=== PATIENT | male | born 1970 | race Caucasian/White ===

== ENCOUNTER 2018-05-27 21:07 | Emergency (ER) | payer BC ==
--- OUTSIDE RECORDS SUMMARY | 2018-05-27 21:10 | XMS REPORT ---
:1970 Author Organization eClinicalWorks Care Team Providers Name Role Phone Brook Herbert Provider Role Unavailable Allergies, Adverse Reactions, Alerts Substance Reaction Event Type N.K.D.A. Info Not Available Non Drug Allergy Problems Problem Type Condition Code Onset Dates Condition Status Problem Gastro-esophageal reflux disease K21.9 Active without esophagitis Problem Over weight E66.3 Active Problem Hypertriglyceridemia E78.1 Active Assessment Pharyngitis, unspecified etiology J02.9 Active Problem Allergic rhinitis, unspecified J30.9 Active Problem Controlled type 2 diabetes mellitus E11.9 Active without complication, without long-term current use of insulin Medications Medication Code Code Instructions Start End Status Dosage System Date Date PredniSONE [facility] 16206028460 20 MG Orally BID Active 1 tablet Metformin HCl [facility] 16411166429 1000 MG Orally Active 1 tablet Once a day with a meal Flonase [facility] 89374232713 50 MCG/ACT Active 1 spray in Nasally Once a each day nostril Montelukast [facility] 38476329830 10 MG Orally Active 1 tablet Sodium Once a day in the evening Tradjenta [facility] 50405684042 5 MG Orally Once Active 1 tablet a day Omeprazole [facility] 81035884784 40 MG Orally Active 1 capsule Once a day Results Name Result Date Reference Range Unit Abnormality Flag STREP A RAPID ----Result Negative [id number] Summary Purpose eClinicalWorks Submission
--- OUTSIDE RECORDS SUMMARY | 2018-05-27 21:10 | XMS REPORT ---
:1970 Author Organization eClinicalWorks Care Team Providers Name Role Phone Pope, Na Provider Role Unavailable Allergies, Adverse Reactions, Alerts Substance Reaction Event Type N.K.D.A. Info Not Available Non Drug Allergy Problems Problem Type Condition Code Onset Dates Condition Status Assessment Hypertriglyceridemia E78.1 Active Assessment Controlled type 2 diabetes mellitus E11.9 Active without complication, without long-term current use of insulin Assessment Low serum vitamin B12 R79.89 Active Assessment Allergic rhinitis, unspecified J30.9 Active Assessment Gastro-esophageal reflux disease K21.9 Active without esophagitis Problem Sore throat J02.9 Active Problem Gastro-esophageal reflux disease K21.9 Active without esophagitis Problem Low serum vitamin B12 R79.89 Active Problem Hypertriglyceridemia E78.1 Active Problem Controlled type 2 diabetes mellitus E11.9 Active without complication, without long-term current use of insulin Problem Over weight E66.3 Active Problem Allergic rhinitis, unspecified J30.9 Active Medications Medication Code Code Instructions Start End Status Dosage System Date Cetirizine HCl [facility] 09774860790 10 MG Orally Active 1 tablet Once a day Singulair [facility] 77570231222 10 MG Active TAKE ONE BY MOUTH DAILY Omeprazole [facility] 75475546961 40 MG Orally Active 1 capsule Once a day Metformin HCl [facility] 66161653304 1000 MG Orally Active 1 tablet Once a day with a meal Metformin HCl [facility] 95870951418 1000 MG Active TAKE ONE BY MOUTH TWICE DAILY Montelukast ND 24039500821 10 MG Orally Active 1 tablet in Sodium Once a day the evening Kroger Test [facility] 88602230274 - In Vitro May 25, Active as directed twice a day 2017 Omeprazole [facility] 33466294065 40 MG Active TAKE ONE BY MOUTH DAILY Tradjenta [facility] 27280944900 5 MG Orally Active 1 tablet Once a day PredniSONE ND 69428348995 20 MG Orally Active 1 tablet BID Flonase [facility] 02306422079 50 MCG/ACT Active 1 spray in Nasally Once a each day nostril Results No Known Results Summary Purpose eClinicalWorks Submission
--- OUTSIDE RECORDS SUMMARY | 2018-05-27 21:10 | XMS REPORT ---
:1970 Author Organization eClinicalWorks Care Team Providers Name Role Phone Pope, Na Provider Role Unavailable Allergies, Adverse Reactions, Alerts Substance Reaction Event Type N.K.D.A. Info Not Available Non Drug Allergy Problems Problem Type Condition Code Onset Dates Condition Status Assessment Allergic rhinitis, unspecified J30.9 Active Assessment Sore throat J02.9 Active Problem Gastro-esophageal reflux disease K21.9 Active without esophagitis Problem Over weight E66.3 Active Problem Sore throat J02.9 Active Problem Controlled type 2 diabetes mellitus E11.9 Active without complication, without long-term current use of insulin Problem Allergic rhinitis, unspecified J30.9 Active Problem Hypertriglyceridemia E78.1 Active Medications Medication Code Code Instructions Start End Status Dosage System Date Date Cetirizine HCl [facility] 91259942320 10 MG Orally Active 1 tablet Once a day PredniSONE ND 11514932911 20 MG Orally BID Active 1 tablet Metformin HCl ND 99187916315 1000 MG Orally Active 1 tablet Once a day with a meal Montelukast ND 50736231918 10 MG Orally Active 1 tablet Sodium Once a day in the evening Flonase ND 32339387994 50 MCG/ACT Active 1 spray in Nasally Once a each day nostril Omeprazole ND 21618206544 40 MG Orally Active 1 capsule Once a day Tradjenta ND 18765716944 5 MG Orally Once Active 1 tablet a day Results No Known Results Summary Purpose eClinicalWorks Submission
--- OUTSIDE RECORDS SUMMARY | 2018-05-27 21:10 | XMS REPORT ---
:1970 Author Organization eClinicalWorks Care Team Providers Name Role Phone Pope, Na Provider Role Unavailable Allergies No Known Allergies Problems Problem Type Condition Code Onset Dates Condition Status Assessment Allergic rhinitis, unspecified J30.9 Active Assessment Hypertriglyceridemia E78.1 Active Assessment Gastro-esophageal reflux disease K21.9 Active without esophagitis Problem Gastro-esophageal reflux disease K21.9 Active without esophagitis Problem Over weight E66.3 Active Problem Sore throat J02.9 Active Problem Controlled type 2 diabetes mellitus E11.9 Active without complication, without long-term current use of insulin Assessment Controlled type 2 diabetes mellitus E11.9 Active without complication, without long-term current use of insulin Problem Allergic rhinitis, unspecified J30.9 Active Problem Hypertriglyceridemia E78.1 Active Medications Medication Code Code Instructions Start End Status Dosage System Date Date Flonase [facility] 43451589817 50 MCG/ACT Active 1 spray in Nasally Once a each day nostril Omeprazole [facility] 38923317378 40 MG Orally Active 1 capsule Once a day Metformin HCl [facility] 68136634861 1000 MG Orally Active 1 tablet Once a day with a meal Tradjenta [facility] 08545864167 5 MG Orally Once Active 1 tablet a day Montelukast [facility] 62308080545 10 MG Orally Active 1 tablet Sodium Once a day in the evening Results No Known Results Summary Purpose eClinicalWorks Submission
[2018-05-27] MEDS ORDERED: NA CHLORIDE 0.9% 1,000 ML ONE (22:12)
[2018-05-27] MEDS ORDERED: KETOROLAC 30 MG/ML INJ ONE (22:12)
[2018-05-27 22:45] LABS: Urine Blood TRACE (NEG); Urine Glucose 2+ (NEG); Urine Protein NEGATIVE (NEG); Urine Specific Gravity 1.025 (1.005-1.030)
[2018-05-27 22:52] LABS: Absolute Lymphocytes (CBC) 2.4 K/uL (0.7-4.9); Absolute Monocytes 0.9 K/uL (0.1-1.3); Absolute Neutrophil 7.7 K/uL (1.8-8.0); Basophils % 0.8 % (0-1.3); Eosinophils % 2.3 % (0-4.4); Hematocrit 45.9 % (39.6-49.0); Lymphocytes % 21.2 % (15.3-44.8); MCH 28.3 pg (27.0-35.0); MCV 83.2 fL (80-100); MPV 10.3 fL (7.6-11.3); Monocytes % 7.7 % (3.3-12.3); RBC Red Blood Cell Count 5.51 M/uL (4.33-5.43)
[2018-05-27 22:59] LABS: Albumin 3.6 g/dL (3.4-5.0); Bilirubin Direct 0.1 mg/dL (0-0.2); Bilirubin Total 0.4 mg/dL (0.2-1.0); Potassium 4.5 mmol/L (3.5-5.1); Protein, Total 7.3 g/dL (6.4-8.2)
[2018-05-28 00:01] LABS: Urine Bacteria <20 /HPF (NONE SEEN); Urine Culture Reflex Order NOT NEEDED; Urine RBC <5 /HPF (NONE SEEN)
--- NOTE | 2018-05-28 00:06 | ER ---
Nurse's Notes [facility] Name: Fermin Mc Age: 47 yrs Sex: Male : 1970 Arrival Date: 05/27/2018 Time: 21:08 Bed 30 Private MD: Buffy Pope Diagnosis: Calculus of kidney and ureter Presentation: 05/27 21:20 Presenting complaint: Patient states: left flank pain started today. Transition of ak1 care: patient was not received from another setting of care. Onset of symptoms was May 27, 2018. Risk Assessment: Do you want to hurt yourself or someone else? Patient reports no desire to harm self or others. Care prior to arrival: None. 21:20 Method Of Arrival: Ambulatory ak1 21:20 Acuity: VANNESSA 3 ak1 22:00 Initial Sepsis Screen: Does the patient meet any 2 criteria? No. Patient's initial mg2 sepsis screen is negative. Does the patient have a suspected source of infection? No. Patient's initial sepsis screen is negative. Triage Assessment: 21:22 General: Appears in no apparent distress. Behavior is calm, cooperative. ak1 Historical: - Allergies: 21:22 No Known Allergies; ak1 - Home Meds: 21:22 Omeprazole Oral [Active]; Metformin Oral [Active]; trajenta [Active]; Singulair Oral ak1 [Active]; - PMHx: 21:22 Diabetes - NIDDM; GERD; allergies; ak1 - PSHx: 21:22 Hernia repair; ak1 - Immunization history:: Adult Immunizations unknown. - Social history:: Smoking status: Patient/guardian denies using tobacco. - Ebola Screening: : No symptoms or risks identified at this time. Screenin:22 Abuse screen: Denies threats or abuse. Denies injuries from another. Nutritional ak1 screening: No deficits noted. Tuberculosis screening: No symptoms or risk factors identified. Fall Risk None identified. Assessment: 21:58 General: Appears in no apparent distress. uncomfortable, Behavior is calm, cooperative. mg2 Pain: Complains of pain in left flank Pain does not radiate. Pain currently is 4 out of 10 on a pain scale. Quality of pain is described as aching, Pain began gradually, Is intermittent, Alleviated by medications. Neuro: Level of Consciousness is awake, alert, obeys commands, Oriented to person, place, time, situation. Cardiovascular: Capillary refill < 3 seconds Patient's skin is warm and dry. Respiratory: Airway is patent Respiratory effort is even, unlabored, Respiratory pattern is regular, symmetrical. GI: Reports nausea. : Reports pain in left flank(s). EENT: No signs and/or symptoms were reported regarding the EENT system. Derm: Skin is intact, Skin is pink, warm \T\ dry. normal. Musculoskeletal: Circulation, motion, and sensation intact. 23:24 Reassessment: Patient appears in no apparent distress at this time. Patient and/or mg2 family updated on plan of care and expected duration. Pain level reassessed. Patient is alert, oriented x 3, equal unlabored respirations, skin warm/dry/pink. Vital Signs: 21:20 BP 136 / 95; Pulse 94; Resp 18; Temp 98.0(O); Pulse Ox 98% on R/A; Weight 83.91 kg (R); ak1 Height 5 ft. 7 in. (170.18 cm) (R); Pain 4/10; 22:24 BP 146 / 68; Pulse 78; Resp 18; Pulse Ox 98% on R/A; Pain 4/10; mg2 23:24 BP 117 / 81; Pulse 75; Resp 18; Pulse Ox 100% on R/A; Pain 2/10; mg2 21:20 Body Mass Index 28.97 (83.91 kg, 170.18 cm) ak1 ED Course: 21:08 Patient arrived in ED. ds1 21:08 Buffy Pope MD is Private Physician. ds1 21:20 Triage completed. ak1 21:22 Arm band placed on Patient placed in waiting room, Patient notified of wait time. ak1 21:22 Patient has correct armband on for positive identification. ak1 21:38 Hadley Jack, MANDI is Primary Nurse. mg2 21:59 Jacek Castano NP is PHCP. pm1 21:59 Juan Miguel Fortune MD is Attending Physician. pm1 21:59 No provider procedures requiring assistance completed. Inserted saline lock: 20 gauge mg2 in right antecubital area, using aseptic technique. Blood collected. 22:37 CT Stone Protocol In Process Unspecified. EDMS 05/28 00:05 Tika Franco MD is Referral Physician. pm1 00:39 IV discontinued, intact, bleeding controlled, No redness/swelling at site. Pressure mg2 dressing applied. Administered Medications: 05/27 22:12 Drug: NS 0.9% 1000 ml Route: IV; Rate: 1000 ml; Site: right antecubital; mg2 05/28 00:37 Follow up: Response: No adverse reaction; IV Status: Completed infusion mg2 05/27 22:12 Drug: TORadol 30 mg Route: IVP; Site: right antecubital; mg2 23:00 Follow up: Response: No adverse reaction; Marked relief of symptoms mg2 05/28 00:29 Drug: Cipro 500 mg Route: PO; mg2 00:37 Follow up: Response: No adverse reaction; Marked relief of symptoms mg2 00:29 Drug: morphine 4 mg Route: IVP; Site: right antecubital; mg2 00:38 Follow up: Response: No adverse reaction; Medication administered at discharge. mg2 00:29 Drug: Zofran 4 mg Route: IVP; Site: right antecubital; mg2 00:38 Follow up: Response: No adverse reaction; Medication administered at discharge. mg2 00:29 Drug: Flomax 0.4 mg Route: PO; mg2 00:36 Follow up: Response: No adverse reaction; Medication administered at discharge. mg2 Outcome: 00:05 Discharge ordered by MD. pm1 00:39 Discharged to home ambulatory, with family. mg2 00:39 Condition: good 00:39 Discharge instructions given to patient, family, Instructed on discharge instructions, follow up and referral plans. medication usage, Demonstrated understanding of instructions, follow-up care, medications, Prescriptions given X 4. 00:40 Patient left the ED. mg2 Signatures: Dispatcher [facility] [facility] Yasmine Perez ds1 Milly Powell, RN RN ak1 Jacek Castano, [employer] pm1 Hadley Jack, MANDI RN mg2
--- NOTE | 2018-05-28 00:06 | EDPHYS ---
Physician Documentation [facility] Name: Fermin Mc Age: 47 yrs Sex: Male : 1970 Arrival Date: 05/27/2018 Time: 21:08 Bed 30 Private MD: Buffy Pope ED Physician Juan Miguel Fortune HPI: 05/28 00:00 This 47 yrs old Male presents to ER via Ambulatory with complaints of Flank pm1 Pain. 00:00 The patient complains of pain in the left low back. The pain does not radiate. Onset: pm1 The symptoms/episode began/occurred today. Modifying factors: The symptoms are alleviated by nothing. the symptoms are aggravated by nothing. Associated signs and symptoms: Pertinent positives: nausea, Pertinent negatives: dysuria, fever, hematuria, vomiting. Severity of pain: in the emergency department the pain has improved. The patient has experienced similar episodes in the past, a few times, and the symptoms today are exactly the same, to previous kidney stones. The patient has not recently seen a physician. Historical: - Allergies: 05/27 21:22 No Known Allergies; ak1 - Home Meds: 21:22 Omeprazole Oral [Active]; Metformin Oral [Active]; trajenta [Active]; Singulair Oral ak1 [Active]; - PMHx: 21:22 Diabetes - NIDDM; GERD; allergies; ak1 - PSHx: 21:22 Hernia repair; ak1 - Immunization history:: Adult Immunizations unknown. - Social history:: Smoking status: Patient/guardian denies using tobacco. - Ebola Screening: : No symptoms or risks identified at this time. ROS: 05/28 00:00 Constitutional: Negative for fever, chills, and weight loss, Eyes: Negative for injury, pm1 pain, redness, and discharge, ENT: Negative for injury, pain, and discharge, Neck: Negative for injury, pain, and swelling, Cardiovascular: Negative for chest pain, palpitations, and edema, Respiratory: Negative for shortness of breath, cough, wheezing, and pleuritic chest pain, Abdomen/GI: Negative for abdominal pain, nausea, vomiting, diarrhea, and constipation. : Negative for injury, bleeding, discharge, and swelling, MS/Extremity: Negative for injury and deformity, Skin: Negative for injury, rash, and discoloration, Neuro: Negative for headache, weakness, numbness, tingling, and seizure. Back: Positive for flank pain, on the left. Exam: 00:00 Constitutional: This is a well developed, well nourished patient who is awake, alert, pm1 and in no acute distress. Head/Face: Normocephalic, atraumatic. Eyes: Pupils equal round and reactive to light, extra-ocular motions intact. Lids and lashes normal. Conjunctiva and sclera are non-icteric and not injected. Cornea within normal limits. Periorbital areas with no swelling, redness, or edema. ENT: Nares patent. No nasal discharge, no septal abnormalities noted. Tympanic membranes are normal and external auditory canals are clear. Oropharynx with no redness, swelling, or masses, exudates, or evidence of obstruction, uvula midline. Mucous membranes moist. Neck: Trachea midline, no thyromegaly or masses palpated, and no cervical lymphadenopathy. Supple, full range of motion without nuchal rigidity, or vertebral point tenderness. No Meningismus. Chest/axilla: Normal chest wall appearance and motion. Nontender with no deformity. No lesions are appreciated. Cardiovascular: Regular rate and rhythm with a normal S1 and S2. No gallops, murmurs, or rubs. Normal PMI, no JVD. No pulse deficits. Respiratory: Lungs have equal breath sounds bilaterally, clear to auscultation and percussion. No rales, rhonchi or wheezes noted. No increased work of breathing, no retractions or nasal flaring. Abdomen/GI: Soft, non-tender, with normal bowel sounds. No distension or tympany. No guarding or rebound. No evidence of tenderness throughout. 00:00 Skin: Warm, dry with normal turgor. Normal color with no rashes, no lesions, and no evidence of cellulitis. MS/ Extremity: Pulses equal, no cyanosis. Neurovascular intact. Full, normal range of motion. 00:00 Back: CVA tenderness, that is mild, is noted on the left. 00:00 Neuro: Orientation: is normal, Motor: is normal. Vital Signs: 05/27 21:20 BP 136 / 95; Pulse 94; Resp 18; Temp 98.0(O); Pulse Ox 98% on R/A; Weight 83.91 kg (R); ak1 Height 5 ft. 7 in. (170.18 cm) (R); Pain 4/10; 22:24 BP 146 / 68; Pulse 78; Resp 18; Pulse Ox 98% on R/A; Pain 4/10; mg2 23:24 BP 117 / 81; Pulse 75; Resp 18; Pulse Ox 100% on R/A; Pain 2/10; mg2 21:20 Body Mass Index 28.97 (83.91 kg, 170.18 cm) ak1 MDM: 22:04 Patient medically screened. pm1 05/28 00:03 Data reviewed: vital signs. Data interpreted: Pulse oximetry: on room air is 100 %. pm1 Interpretation: normal. Counseling: I had a detailed discussion with the patient and/or guardian regarding: the historical points, exam findings, and any diagnostic results supporting the discharge/admit diagnosis, lab results, radiology results, the need for outpatient follow up, for definitive care, a urologist, to return to the emergency department if symptoms worsen or persist or if there are any questions or concerns that arise at home. 05/27 22:04 Order name: Urine Microscopic Only; Complete Time: 00:02 pm1 05/27 22:04 Order name: Basic Metabolic Panel; Complete Time: 23:31 pm1 05/27 22:04 Order name: CBC with Diff; Complete Time: 23:31 pm1 05/27 22:04 Order name: Hepatic Function; Complete Time: 23:31 pm1 05/27 22:04 Order name: Lipase; Complete Time: 23:31 pm1 05/27 22:19 Order name: Urine Dipstick--Ancillary (enter results); Complete Time: 23:31 dc 05/27 22:04 Order name: IV Saline Lock; Complete Time: 22:12 pm1 05/27 22:04 Order name: CT Stone Protocol pm1 05/27 22:04 Order name: Labs collected and sent; Complete Time: 22:12 pm1 05/27 22:04 Order name: Urine Dipstick-Ancillary (obtain specimen); Complete Time: 22:12 pm1 Administered Medications: 05/27 22:12 Drug: NS 0.9% 1000 ml Route: IV; Rate: 1000 ml; Site: right antecubital; mg2 05/28 00:37 Follow up: Response: No adverse reaction; IV Status: Completed infusion mg2 05/27 22:12 Drug: TORadol 30 mg Route: IVP; Site: right antecubital; mg2 23:00 Follow up: Response: No adverse reaction; Marked relief of symptoms mg2 05/28 00:29 Drug: Cipro 500 mg Route: PO; mg2 00:37 Follow up: Response: No adverse reaction; Marked relief of symptoms mg2 00:29 Drug: morphine 4 mg Route: IVP; Site: right antecubital; mg2 00:38 Follow up: Response: No adverse reaction; Medication administered at discharge. mg2 00:29 Drug: Zofran 4 mg Route: IVP; Site: right antecubital; mg2 00:38 Follow up: Response: No adverse reaction; Medication administered at discharge. mg2 00:29 Drug: Flomax 0.4 mg Route: PO; mg2 00:36 Follow up: Response: No adverse reaction; Medication administered at discharge. mg2 Disposition: 03:10 Co-signature as Attending Physician, Juan Miguel Fortune MD. Disposition: 05/28/18 00:05 Discharged to Home. Impression: Calculus of kidney and ureter. - Condition is Stable. - Discharge Instructions: Kidney Stones. - Prescriptions for Tylenol- Codeine #3 300-30 mg Oral Tablet - take 2 tablet by ORAL route every 6 hours As needed; 30 tablet. Zofran 4 mg Oral Tablet - take 1 tablet by ORAL route every 12 hours As needed; 20 tablet. Flomax 0.4 mg Oral Capsule, Sust. Release 24 hr - take 1 capsule by ORAL route once daily 1/2 hour following the same meal each day; 30 capsule. Cipro 500 mg Oral Tablet - take 1 tablet by ORAL route every 12 hours for 7 days; 14 tablet. - Medication Reconciliation Form, Thank You Letter, Antibiotic Education, Prescription Opioid Use, Work release form form. - Follow up: Emergency Department; When: As needed; Reason: Worsening of condition. Follow up: Tika Franco MD; When: 2 - 3 days; Reason: Recheck today's complaints, Continuance of care, Re-evaluation by your physician. - Problem is new. - Symptoms have improved. Signatures: Dispatcher [employer] EDMS Milly Powell RN RN ak1 Jacek Castano, SALES AGENT INSURANCE SALES AGENT INSURANCE pm1 Juan Miguel Fortune MD MD Hadley Jack RN RN mg2 Corrections: (The following items were deleted from the chart) 00:40 00:05 05/28/2018 00:05 Discharged to Home. Impression: Calculus of kidney and ureter. mg2 Condition is Stable. Forms are Medication Reconciliation Form, Thank You Letter, Antibiotic Education, Prescription Opioid Use. Follow up: Emergency Department; When: As needed; Reason: Worsening of condition. Follow up: Tika Franco; When: 2 - 3 days; Reason: Recheck today's complaints, Continuance of care, Re-evaluation by your physician. Problem is new. Symptoms have improved. pm1
[2018-05-28] MEDS ORDERED: CIPROFLOXACIN HCL 500 MG TAB ONE (00:17)
[2018-05-28] MEDS ORDERED: MORPHINE 4 MG/ML SYR ONE (00:22)
[2018-05-28] MEDS ORDERED: TAMSULOSIN 0.4 MG SR CAP ONE (00:22)
[2018-05-28] MEDS ORDERED: ONDANSETRON 4 MG/2 ML VIAL ONE (00:22)
--- NOTE | 2018-05-28 07:52 | RAD REPORT ---
EXAM DESCRIPTION: CT - Stone Protocol - 05/28/2018 6:01 am CLINICAL HISTORY: Abdominal pain, flank pain A preliminary report was provided at the time of the study and reviewed prior to final report. COMPARISON: None. TECHNIQUE: Axial 5 mm thick images were obtained without oral or IV contrast. The [id number] span s the entirety of the system including uppermost abdomen and lung bases. All CT scans are performed using dose optimization technique as appropriate and may include automated exposure control or mA/KV adjustment according to patient size. FINDINGS: Mild left-sided hydronephrosis is present secondary to a proximal left ureter 5 mm stone. On a KUB projection the stone would be just lateral and inferior to the L4 left transverse process. P atient has multiple 3-7 mm caliceal calculi on the right. Patient does appear to have some faint mine ralization in a few calices on the left. No suspicious renal masses. Isodense masses and pyelonephrit is are not excluded on a stone protocol CT scan. Urinary bladder is contracted. No bladder calculi se en. Prostate gland and seminal vesicles within normal limits. No adrenal abnormality. Imaged portions of the liver, spleen and pancreas show no suspicious findings on non-contrast imaging . No gallbladder or biliary tree abnormality identified. No suspicious bowel findings. Sigmoid diverticulosis is present without diverticulitis. There is flui d in the distal esophagus presumed to be reflux. This could be a minimal hiatal hernia. No appendicit is. No hernia, mass or bulky lymphadenopathy noted. No free air, free fluid or inflammatory stranding. No significant bony abnormality. IMPRESSION: Mild left-sided hydronephrosis secondary to a 5 mm proximal left ureter stone. On KUB projection, the stone is just lateral and inferior to the L4 left transverse process. Nonacute findings detailed in the body of the report. Isodense masses and pyelonephritis are not excluded on stone protocol technique.
== END 2018-05-28 00:40 | disposition home or self-care (01) ==
LOC: ER 21:07
DX: N20.2 Calculus of kidney with calculus of ureter (principal)
CPT/HCPCS: 36415; 74176; 76377; 80048; 80076; 81003; 81015; 83690; 85025; 96361; 96374; 96375; 99284; J2405; J7030

== ENCOUNTER 2018-06-02 23:54 | Observation (INO) | payer BC ==
[2018-06-03] MEDS ORDERED: ONDANSETRON 4 MG/2 ML VIAL ONE (00:39)
[2018-06-03] MEDS ORDERED: NA CHLORIDE 0.9% 1,000 ML ONE (00:39)
[2018-06-03] MEDS ORDERED: MEPERIDINE HCL 50 MG/ML AMP ONE ×2 (00:39→03:33)
[2018-06-03 00:49] LABS: Absolute Lymphocytes (CBC) 2.1 K/uL (0.7-4.9); Absolute Monocytes 1.1 K/uL (0.1-1.3); Absolute Neutrophil 7.9 K/uL (1.8-8.0); Basophils % 0.7 % (0-1.3); Eosinophils % 1.9 % (0-4.4); Hematocrit 43.8 % (39.6-49.0); Lymphocytes % 18.3 % (15.3-44.8); MCH 28.3 pg (27.0-35.0); MCV 82.7 fL (80-100); Monocytes % 9.3 % (3.3-12.3); RBC Red Blood Cell Count 5.29 M/uL (4.33-5.43)
[2018-06-03 01:01] LABS: Potassium 4.2 mmol/L (3.5-5.1)
[2018-06-03 01:07] LABS: Urine Blood 2+ (NEG); Urine Glucose NEGATIVE (NEG); Urine Protein NEGATIVE (NEG); Urine Specific Gravity >1.030 (1.005-1.030); Urine pH 5.5 (5.0-7.0)
[2018-06-03 01:10] LABS: Urine Bacteria <20 /HPF (NONE SEEN); Urine Culture Reflex Order NOT NEEDED; Urine Mucus LIGHT /HPF (NONE SEEN); Urine RBC <5 /HPF (NONE SEEN)
[2018-06-03] MEDS ORDERED: TAMSULOSIN 0.4 MG SR CAP ONE (03:58)
[2018-06-03] MEDS ORDERED: KETOROLAC 30 MG/ML INJ ONE (03:58)
[2018-06-03] MEDS ORDERED: MAGNESIUM SULFATE 1 gm IVPB 1 GM/100 ML BAG IV ONE (03:58)
--- NOTE | 2018-06-03 04:12 | ER ---
Nurse's Notes [facility] Name: Fermin Mc Age: 47 yrs Sex: Male : 1970 Arrival Date: 06/02/2018 Time: 23:55 Bed 5 Private MD: Buffy Pope Diagnosis: Ureterolithiasis;Intractable pain;Failure of outpatient therapy Presentation: 06/03 00:05 Presenting complaint: Patient states: that he just had lithotripsy on by Dr Franco. fc Is having pain to left side that radiates to his back. Positive nausea. Taking Cipro and Flomax currently. Transition of care: patient was not received from another setting of care. Onset of symptoms was June 02, 2018. Risk Assessment: Do you want to hurt yourself or someone else? Patient reports no desire to harm self or others. Initial Sepsis Screen: Does the patient meet any 2 criteria? No. Patient's initial sepsis screen is negative. Does the patient have a suspected source of infection? No. Patient's initial sepsis screen is negative. Care prior to arrival: Medication(s) given: tramadol at 2300. 00:05 Method Of Arrival: Wheelchair fc 00:05 Acuity: VANNESSA 3 fc Historical: - Allergies: 00:16 No Known Allergies; fc - Home Meds: 00:16 omeprazole 40 mg oral cpDR 1 cap once daily [Active]; Singulair 10 mg oral tab 1 tab fc once daily [Active]; metformin 1,000 mg oral tab 1 tab 2 times per day [Active]; trajenta daily [Active]; multivitamin oral tab daily [Active]; Flomax 0.4 mg Oral cp24 1 cap once daily [Active]; - PMHx: 00:16 allergies; Diabetes - NIDDM; GERD; Kidney stones; fc - PSHx: 00:16 Lithotripsy; Hernia repair; fc - Immunization history:: Last tetanus immunization: up to date. - Social history:: Smoking status: Patient/guardian denies using tobacco. - Ebola Screening: : Patient negative for fever greater than or equal to 101.5 degrees Fahrenheit, and additional compatible Ebola Virus Disease symptoms Patient denies exposure to infectious person Patient denies travel to an Ebola-affected area in the 21 days before illness onset. - Family history:: not pertinent. - Hospitalizations: : No recent hospitalization is reported. Screenin:13 Fall Risk Ambulatory Aid- None/Bed Rest/Nurse Assist (0 pts). Gait- Normal/Bed jd3 Rest/Wheelchair (0 pts) Mental Status- Oriented to own ability (0 pts). Total Wallace Fall Scale indicates No Risk (0-24 pts). 00:14 Abuse screen: Denies threats or abuse. Nutritional screening: No deficits noted. jd3 Tuberculosis screening: No symptoms or risk factors identified. Assessment: 00:11 General: Appears uncomfortable, Behavior is cooperative, appropriate for age. Pain: jd3 Complains of pain in posterior aspect of left lateral abdomen Pain radiates to anterior aspect of left lateral abdomen Quality of pain is described as sharp. Neuro: Level of Consciousness is awake, alert, obeys commands, Oriented to person, place, time, situation. Cardiovascular: Capillary refill < 3 seconds Patient's skin is warm and dry. Respiratory: Airway is patent Respiratory effort is even, unlabored, Respiratory pattern is regular, symmetrical, Denies shortness of breath. GI: Abdomen is round non-distended, Bowel sounds present X 4 quads. Abd is soft Abdomen is tender to palpation in anterior aspect of left lateral abdomen. : No signs and/or symptoms were reported regarding the genitourinary system. EENT: No signs and/or symptoms were reported regarding the EENT system. Derm: Skin is intact, Skin is dry, Skin is normal, Skin temperature is warm. Musculoskeletal: Circulation, motion, and sensation intact. Range of motion: intact in all extremities. 01:00 Reassessment: Patient appears in no apparent distress at this time. Patient and/or jd3 family updated on plan of care and expected duration. Pain level reassessed. Patient is alert, oriented x 3, equal unlabored respirations, skin warm/dry/pink. Patient states feeling better. 02:03 Reassessment: Patient appears in no apparent distress at this time. Patient and/or jd3 family updated on plan of care and expected duration. Pain level reassessed. Patient is alert, oriented x 3, equal unlabored respirations, skin warm/dry/pink. 03:25 Reassessment: Patient returned from CT, states pain returned to lower back, provider lp1 notified. 04:00 Reassessment: Patient appears in no apparent distress at this time. Patient and/or jd3 family updated on plan of care and expected duration. Pain level reassessed. Patient is alert, oriented x 3, equal unlabored respirations, skin warm/dry/pink. Patient states feeling better. 04:26 Reassessment: Patient appears in no apparent distress at this time. Patient and/or jd3 family updated on plan of care and expected duration. Pain level reassessed. Patient is alert, oriented x 3, equal unlabored respirations, skin warm/dry/pink. 05:53 Reassessment: Patient appears in no apparent distress at this time. Patient and/or jd3 family updated on plan of care and expected duration. Pain level reassessed. Patient is alert, oriented x 3, equal unlabored respirations, skin warm/dry/pink. Vital Signs: 00:05 BP 147 / 88; Pulse 54; Resp 18; Temp 98.6(O); Pulse Ox 100% on R/A; Weight 83.91 kg fc (R); Height 5 ft. 7 in. (170.18 cm) (R); Pain 10/10; 01:00 BP 142 / 93; Pulse 66; Resp 18 S; Pulse Ox 95% on R/A; Pain 0/10; jd3 02:03 BP 102 / 66; Pulse 70; Resp 16 S; Pulse Ox 95% on R/A; Pain 0/10; jd3 03:30 BP 125 / 82; Pulse 62; Resp 14; Pulse Ox 98% on 2 lpm NC; lp1 04:01 BP 125 / 82; Pulse 79; Resp 17 S; Pulse Ox 98% on 2 lpm NC; jd3 04:27 BP 125 / 84; Pulse 65; Resp 15 S; Pulse Ox 97% on 2 lpm NC; jd3 05:52 BP 122 / 70; Pulse 60; Resp 15 S; Pulse Ox 98% on 2 lpm NC; jd3 00:05 Body Mass Index 28.97 (83.91 kg, 170.18 cm) ED Course: 06/02 23:55 Patient arrived in ED. es 23:55 Buffy Pope MD is Private Physician. es 06/03 00:05 Roman Landeros, MANDI is Primary Nurse. jd3 00:12 Sherman Perez MD is Attending Physician. rn 00:13 Warm blanket given. jd3 00:13 Patient has correct armband on for positive identification. Bed in low position. Call jd3 light in reach. Side rails up X2. Adult w/ patient. 00:14 Triage completed. fc 00:14 Arm band placed on. jd3 00:30 Inserted saline lock: 20 gauge in right forearm, using aseptic technique. Blood jd3 collected. 03:03 CT Stone Protocol In Process Unspecified. EDMS 04:10 Ann-Marie Bowers MD is Hospitalizing Provider. rn 06:02 No provider procedures requiring assistance completed. Patient admitted, IV remains in jd3 place. Administered Medications: 00:38 Drug: NS 0.9% 1000 ml Route: IV; Rate: 1000 ml; Site: right forearm; jd3 02:33 Follow up: Response: No adverse reaction; IV Status: Completed infusion; IV Intake: jd3 1000ml 00:39 Drug: Demerol 50 mg Route: IVP; Site: right forearm; jd3 02:33 Follow up: Response: No adverse reaction; Pain is decreased jd3 00:39 Drug: Zofran 4 mg Route: IVP; Site: right forearm; jd3 02:33 Follow up: Response: No adverse reaction jd3 03:32 Drug: Demerol 50 mg Route: IVP; Site: right forearm; lp1 04:19 Follow up: Response: No adverse reaction jd3 03:59 Drug: TORadol 30 mg Route: IVP; Site: right forearm; jd3 04:19 Follow up: Response: No adverse reaction jd3 04:00 Drug: Flomax 0.4 mg Route: PO; jd3 04:20 Follow up: Response: No adverse reaction jd3 04:00 Drug: Magnesium Sulfate 1 grams Route: IVPB; Infused Over: 1 hrs; Site: right forearm; jd3 05:23 Follow up: Response: No adverse reaction; IV Status: Completed infusion jd3 Intake: 02:33 IV: 1000ml; Total: 1000ml. jd3 Outcome: 04:11 Decision to Hospitalize by Provider. rn 06:03 Admitted to Med/surg accompanied by tech, via wheelchair, room 419, with chart, Report jd3 called to Rimma RAYMOND 06:03 Condition: stable 06:03 Instructed on the need for admit, Demonstrated understanding of instructions. 06:30 Patient left the ED. jd3 Signatures: Dispatcher [employer] Anju Hernandez Felicia RN RN fc Sherman Perez MD MD rn Felisa Austin RN RN lp1 Roman Landeros RN RN jd3 Corrections: (The following items were deleted from the chart) 06:42 06:40 Patient left the ED. kevin jd3
--- NOTE | 2018-06-03 04:13 | EDPHYS ---
Physician Documentation [facility] Name: Fermin Mc Age: 47 yrs Sex: Male : 1970 Arrival Date: 06/02/2018 Time: 23:55 Bed 5 Private MD: Buffy Pope ED Physician Sherman Perez HPI: 06/03 00:24 This 47 yrs old Male presents to ER via Wheelchair with complaints of rn Possible Kidney Stone. 00:24 The patient presents with abdominal pain. Onset: The symptoms/episode began/occurred rn today. The patient complains of pain in the left mid back. The pain radiates to the abdomen. Onset: The symptoms/episode began/occurred today. Modifying factors: The symptoms are alleviated by nothing. the symptoms are aggravated by nothing. Modifying factors: The symptoms are alleviated by nothing. 00:24 Severity of pain: At its worst the pain was moderate in the emergency department the rn pain is unchanged. The patient has experienced similar episodes in the past, several times. The patient has been recently seen by a physician: The patient has been recently seen at the [facility] Emergency Department. REports seen here last week, diagnosed with kidney stone, had lithotripsy by Dr. 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 . Historical: - Allergies: 00:16 No Known Allergies; fc - Home Meds: 00:16 omeprazole 40 mg oral cpDR 1 cap once daily [Active]; Singulair 10 mg oral tab 1 tab fc once daily [Active]; metformin 1,000 mg oral tab 1 tab 2 times per day [Active]; trajenta daily [Active]; multivitamin oral tab daily [Active]; Flomax 0.4 mg Oral cp24 1 cap once daily [Active]; - PMHx: 00:16 allergies; Diabetes - NIDDM; GERD; Kidney stones; fc - PSHx: 00:16 Lithotripsy; Hernia repair; fc - Immunization history:: Last tetanus immunization: up to date. - Social history:: Smoking status: Patient/guardian denies using tobacco. - Ebola Screening: : Patient negative for fever greater than or equal to 101.5 degrees Fahrenheit, and additional compatible Ebola Virus Disease symptoms Patient denies exposure to infectious person Patient denies travel to an Ebola-affected area in the 21 days before illness onset. - Family history:: not pertinent. - Hospitalizations: : No recent hospitalization is reported. ROS: 00:24 Constitutional: Negative for fever, chills, and weight loss, Eyes: Negative for injury, rn pain, redness, and discharge, Neck: Negative for injury, pain, and swelling, Cardiovascular: Negative for chest pain, palpitations, and edema, Respiratory: Negative for shortness of breath, cough, wheezing, and pleuritic chest pain, Abdomen/GI: + abd pain/constipation/loose stool Back: + left flank pain MS/Extremity: Negative for injury and deformity, Skin: Negative for injury, rash, and discoloration, Neuro: Negative for headache, weakness, numbness, tingling, and seizure. Exam: 00:24 Constitutional: This is a well developed, well nourished patient who is awake, alert, rn appears uncomfortable Head/Face: Normocephalic, atraumatic. Cardiovascular: Regular rate and rhythm with a normal S1 and S2. No gallops, murmurs, or rubs. Normal PMI, no JVD. No pulse deficits. Respiratory: Lungs have equal breath sounds bilaterally, clear to auscultation and percussion. No rales, rhonchi or wheezes noted. No increased work of breathing, no retractions or nasal flaring. Abdomen/GI: soft, mild diffuse abd tenderness, no rebound Back: No spinal tenderness. No costovertebral tenderness. Full range of motion. Skin: Warm, dry MS/ Extremity: Pulses equal, no cyanosis. Neurovascular intact. Full, normal range of motion. Equal circumference. Neuro: Awake and alert, GCS 15, oriented to person, place, time, and situation. Cranial nerves II-XII grossly intact. Motor strength 5/5 in all extremities. Sensory grossly intact. Vital Signs: 00:05 BP 147 / 88; Pulse 54; Resp 18; Temp 98.6(O); Pulse Ox 100% on R/A; Weight 83.91 kg fc (R); Height 5 ft. 7 in. (170.18 cm) (R); Pain 10/10; 01:00 BP 142 / 93; Pulse 66; Resp 18 S; Pulse Ox 95% on R/A; Pain 0/10; jd3 02:03 BP 102 / 66; Pulse 70; Resp 16 S; Pulse Ox 95% on R/A; Pain 0/10; jd3 03:30 BP 125 / 82; Pulse 62; Resp 14; Pulse Ox 98% on 2 lpm NC; lp1 04:01 BP 125 / 82; Pulse 79; Resp 17 S; Pulse Ox 98% on 2 lpm NC; jd3 04:27 BP 125 / 84; Pulse 65; Resp 15 S; Pulse Ox 97% on 2 lpm NC; jd3 05:52 BP 122 / 70; Pulse 60; Resp 15 S; Pulse Ox 98% on 2 lpm NC; jd3 00:05 Body Mass Index 28.97 (83.91 kg, 170.18 cm) fc MDM: 00:12 Patient medically screened. rn 04:09 Differential diagnosis: non-specific abd pain, Pyelonephritis, Ureterolithiasis, rn urinary tract infection. Data reviewed: vital signs, nurses notes, lab test result(s), radiologic studies, CT scan, and as a result, I will admit patient. Counseling: I had a detailed discussion with the patient and/or guardian regarding: the historical points, exam findings, and any diagnostic results supporting the discharge/admit diagnosis, lab results, radiology results, the need for further work-up and treatment in the hospital. Response to treatment: the patient's symptoms have mildly improved after treatment, and as a result, I will admit patient. Admission orders: after a detailed discussion of the patient's condition and case, the admit orders are written by me. ED course: Pt with stone still in same area, likely same stone and lithotripsy did not help, pain improved but continues to return when pain meds wear off, will admit for further care. . 06/03 00:21 Order name: CBC with Diff; Complete Time: 01:46 rn 06/03 00:21 Order name: Basic Metabolic Panel; Complete Time: :46 rn 06/03 00:21 Order name: Urine Culture rn 06/03 00:21 Order name: Urine Microscopic Only; Complete Time: 01:46 rn 06/03 01:05 Order name: Urine Dipstick--Ancillary (enter results); Complete Time: 01:46 mw2 06/03 05:43 Order name: Basic Metabolic Panel EDMS 06/03 00:21 Order name: CT Stone Protocol rn 06/03 05:43 Order name: Basic Metabolic Panel EDMS 06/03 05:43 Order name: CBC with Automated Diff EDMS 06/03 05:43 Order name: CBC with Automated Diff EDMS 06/03 06:38 Order name: Glucose, Ancillary Testing EDMS 06/03 00:21 Order name: IV Start; Complete Time: 00:39 rn 06/03 00:21 Order name: Urine Dipstick-Ancillary (obtain specimen); Complete Time: 01:01 rn 06/03 05:43 Order name: CONS Physician Consult EDMS 06/03 05:43 Order name: NPO EDMS Administered Medications: 00:38 Drug: NS 0.9% 1000 ml Route: IV; Rate: 1000 ml; Site: right forearm; jd3 02:33 Follow up: Response: No adverse reaction; IV Status: Completed infusion; IV Intake: jd3 1000ml 00:39 Drug: Demerol 50 mg Route: IVP; Site: right forearm; jd3 02:33 Follow up: Response: No adverse reaction; Pain is decreased jd3 00:39 Drug: Zofran 4 mg Route: IVP; Site: right forearm; jd3 02:33 Follow up: Response: No adverse reaction jd3 03:32 Drug: Demerol 50 mg Route: IVP; Site: right forearm; lp1 04:19 Follow up: Response: No adverse reaction jd3 03:59 Drug: TORadol 30 mg Route: IVP; Site: right forearm; jd3 04:19 Follow up: Response: No adverse reaction jd3 04:00 Drug: Flomax 0.4 mg Route: PO; jd3 04:20 Follow up: Response: No adverse reaction jd3 04:00 Drug: Magnesium Sulfate 1 grams Route: IVPB; Infused Over: 1 hrs; Site: right forearm; jd3 05:23 Follow up: Response: No adverse reaction; IV Status: Completed infusion jd3 Disposition: 06/03/18 04:11 Hospitalization ordered by Ann-Marie Bowers for Inpatient Admission. Preliminary diagnosis are Ureterolithiasis, Intractable pain, Failure of outpatient therapy. - Bed requested for Telemetry/MedSurg (Inpatient). - Status is Inpatient Admission. jd3 - Condition is Stable. - Problem is an ongoing problem. - Symptoms have improved. UTI on Admission? No Signatures: Dispatcher [employer] EDMS Teagan Ivan RN RN kl Iona Jackson RN RN Sherman Laboy MD MD rn Pena, Laura, RN RN lp1 Roman Landeros RN RN jd3 Corrections: (The following items were deleted from the chart) 05:11 04:11 Hospitalization Ordered by Ann-Marie Bowers MD for Inpatient Admission. Preliminary kl diagnosis is Ureterolithiasis; Intractable pain; Failure of outpatient therapy. Bed requested for Telemetry/MedSurg (Inpatient). Status is Inpatient Admission. Condition is Stable. Problem is an ongoing problem. Symptoms have improved. UTI on Admission? No. rn 06:40 05:11 06/03/2018 04:11 Hospitalization Ordered by Ann-Marie Bowers MD for Inpatient jd3 Admission. Preliminary diagnosis is Ureterolithiasis; Intractable pain; Failure of outpatient therapy. Bed requested for Telemetry/MedSurg (Inpatient). Status is Inpatient Admission. Condition is Stable. Problem is an ongoing problem. Symptoms have improved. UTI on Admission? No. kl
--- NOTE | 2018-06-03 04:59 | P.HP ---
Certification for Inpatient Patient admitted to: Observation With expected LOS: <2 Midnights Practitioner: I am a practitioner with admitting privileges, knowledge of patient current condition, hospital course, and medical plan of care. Services: Services provided to patient in accordance with Admission requirements found in Title 42 Section 412.3 of the Code of Federal Regulations Patient History Date of Service: 06/03/18 Reason for admission: Obstructive ureterolithiasis History of Present Illness: Mr Mc is a 47-year-old male with history of diabetes mellitus types 2, who about 5 days ago he came to ED complaining of left flank pain. He was diagnosed with a 5 mm ureteral stone on the left side leading with mild hydronephrosis. The patient was discharged home on referred to see Dr. Franco. A couple of days later, Dr. Franco evaluate the patient and decided to lithotripsy. Then the patient improved his symptoms, however last night his pain came back. The density is 10/10, is located in his left flank radiated to left lower quadrant. No history of fever or chills, no nausea or vomiting. Lab work remarkable for leukocytosis 11.3 K, renal function is team abnormal but improving from the last time he was in ER, UA is positive for blood but no sign of infection. CT abdomen and pelvis still show 5 mm stone on the left ureteral, possible slightly more distal, with mild hydronephrosis. Allergies No Known Allergies Allergy (Verified 05/28/18 15:35) Home medications list reviewed: Yes Home Medications: Metformin HCl [Glucophage] 1,000 mg PO BID 05/11/15 Montelukast [Singulair] 10 mg PO DAILY 05/11/15 Omeprazole [Prilosec] 40 mg PO DAILY 05/11/15 Cetirizine HCl [Zyrtec] 5 mg PO DAILY 05/28/18 Ciprofloxacin HCl [Cipro 500 MG Tablet] 500 mg PO BID 05/28/18 Codeine/APAP [Tylenol W/Codeine #3 tab] 1 tab PO PRN PRN 05/28/18 Krill/Om-3/Dha/Epa/Phospho/Ast [Krill Oil 500 mg Softgel] 1 each PO DAILY Linagliptin [Tradjenta] 5 mg PO DAILY 05/28/18 Multivitamin [Multivitamins] 1 each PO DAILY 05/28/18 Ondansetron [Zofran] 4 mg PO BID 05/28/18 - Past Medical/Surgical History -: Diabetes mellitus -: Kidney stones -: Lithotripsy -: Hernia repair - Family History Family History: Reviewed- Non-Contributory - Social History Smoking Status: Never smoker Alcohol use: Yes CD- Drugs: No Place of Residence: Home Review of Systems 10-point ROS is otherwise unremarkable Physical Examination - Physical Exam General: Alert, In no apparent distress HEENT: Atraumatic, PERRLA, Mucous membr. moist/pink, EOMI, Sclerae nonicteric Neck: Supple, 2+ carotid pulse no bruit, No LAD, Without JVD or thyroid abnormality Respiratory: Clear to auscultation bilaterally, Normal air movement Cardiovascular: Regular rate/rhythm, Normal S1 S2 Gastrointestinal: Normal bowel sounds, Tenderness (Left CVA area, left flank) Musculoskeletal: No tenderness Integumentary: No rashes Neurological: Normal speech, Normal strength at 5/5 x4 extr, Normal tone, Normal affect Lymphatics: No axilla or inguinal lymphadenopathy - Studies Laboratory Data (last 24 hrs) 06/03/18 00:30: Sodium 142, Potassium 4.2, BUN 19 H, Creatinine 1.30, Glucose 138 H 06/03/18 00:30: WBC 11.3 H D, Hgb 15.0, Hct 43.8, Plt Count 285 D Assessment and Plan - Problems (Diagnosis) (1) Hydronephrosis with obstructing calculus Current Visit: Yes Status: Acute (2) Diabetes mellitus Current Visit: Yes Status: Acute Qualifiers: Diabetes mellitus type: type 2 Diabetes mellitus long term care social worker insulin use: without long term care social worker use Diabetes mellitus complication status: with unspecified complications Qualified Code(s): E11.8 - Type 2 diabetes mellitus with unspecified complications - Plan The patient will be admitted to the hospital due to obstructive ureterolithiasis , leading with mild left-sided hydronephrosis. We keep the patient NPO, start IV fluids and symptomatic medication for pain. Will consult Dr. Franco for farther evaluation and treatment recommendation. Will order SSI for blood sugar control. - Advance Directives Does patient have a Living Will: No Does patient have a Durable POA for Healthcare: No - Code Status/Comfort Care Code Status Assessed: Yes Code Status: Full Code
[2018-06-03] MEDS ORDERED: NA CHLORIDE 0.9% 1,000 ML IV SCH (05:41)
[2018-06-03] MEDS ORDERED: ONDANSETRON 4 MG/2 ML VIAL IV PRN (05:41)
[2018-06-03] MEDS ORDERED: MORPHINE 2 MG/ML SYR IV PRN (05:41)
[2018-06-03] MEDS ORDERED: ACETAMINOPHEN 500 MG TAB PO PRN (05:41)
[2018-06-03] MEDS ORDERED: INSULIN -REGULAR HUMAN 50 UNIT/0.5 ML ML SQ SCH (06:00)
[2018-06-03 06:39] VITALS: BMI 28.7
--- NOTE | 2018-06-03 09:28 | P.PN ---
Subjective Date of Service: 06/03/18 Primary Care Provider: Dr. Pope Chief Complaint: Obstructive ureterolithiasis Subjective: Other (Patient stable this time. Pain controlled) Physical Examination - Vital Signs Temperature: 97.1 F Blood Pressure: 121/77 Pulse: 54 Respirations: 16 Pulse Ox (%): 98 - Physical Exam General: Alert, In no apparent distress, Oriented x3, Cooperative HEENT: Atraumatic Neck: Supple Respiratory: Clear to auscultation bilaterally, Normal air movement Cardiovascular: Normal pulses, Regular rate/rhythm Gastrointestinal: Normal bowel sounds, Soft and benign, Non-distended, No masses , No rebound, No guarding, Tenderness (Slight pain to the left flank) Musculoskeletal: No erythema, No tenderness, No warmth Integumentary: No tenderness/swelling, No erythema, No warmth, No cyanosis Neurological: Normal speech, Normal strength at 5/5 x4 extr, Normal tone, Normal affect - Studies Laboratory Data (last 24 hrs) 06/03/18 00:30: Sodium 142, Potassium 4.2, BUN 19 H, Creatinine 1.30, Glucose 138 H 06/03/18 00:30: WBC 11.3 H D, Hgb 15.0, Hct 43.8, Plt Count 285 D Medications List Reviewed: Yes Assessment & Plan Discharge Plan: Home Plan to discharge in: 24 Hours Physician Review Additional Text: Impression: Left recurrent flank pain with 5 mm ureteral stone and left-sided hydronephrosis with recent lithotripsy Diabetes mellitus type 2 GERD Plan: Left recurrent flank pain with 5 mm ureteral stone and left-sided hydronephrosis with recent lithotripsy: Patient currently NPO for possible urological intervention. Will continue with IV fluids, antibiotic therapy, pain control and Flomax. Await further recommendations from neurology. Diabetes mellitus type 2: Will continue with sliding scale and Accu-Cheks. Will hold his oral medication at this time. Will monitor and adjust appropriately. GERD: Will continue with PPI. Time Spent Managing Pts Care (In Minutes): 55
[2018-06-03] MEDS ORDERED: TRAMADOL HCL 50 MG TAB PO PRN (09:29)
[2018-06-03] MEDS: INSULIN -REGULAR HUMAN 50 UNIT/0.5 ML ML SQ SCH ×3 (11:22→21:00)
[2018-06-03] MEDS: HYDROCODONE/APAP 7.5/325 MG TAB PO PRN ×2 (11:37→18:28)
[2018-06-03] MEDS: CIPROFLOXACIN 400mg IV 400 MG/200 ML BAG IV SCH ×2 (11:37→20:24)
[2018-06-03] MEDS: NACHLORIDE 0.45% 1,000 ML IV SCH ×2 (11:38→22:21)
--- NOTE | 2018-06-03 11:41 | RAD REPORT ---
EXAM DESCRIPTION: CT - Stone Protocol - 06/03/2018 7:11 am CLINICAL HISTORY: Abdominal pain, left flank pain, lithotripsy performed a few days earlier. A preliminary report was provided at the time of the study and reviewed prior to final report. The final report was delayed due to PACs and/or Fluency technical problems that existed at the time of the study or during expected/usual dictation time period. COMPARISON: KUB May 29, CT study May 27 TECHNIQUE: Axial 5 mm thick images were obtained without oral or IV contrast. The [id number] span s the entirety of the system partially obscuring uppermost abdomen and lung bases. All CT scans are performed using dose optimization technique as appropriate and may include automated exposure control or mA/KV adjustment according to patient size. FINDINGS: Pdyf-db-ydeyxcxr left-sided hydronephrosis is present secondary to a 5-6 mm left mid urete r calcification. The calcification on a KUB projection is just superior to the left transverse proces s L5. This is approximately 2 centimeter distal migration compared to the May 27 CT study. No o ther left-sided renal or ureteral calculi. No bladder calculus seen. No right-sided hydronephrosis. N onobstructing right renal calculi are stable. Imaged portions of the liver, spleen and pancreas show no suspicious findings on non-contrast imaging . No gallbladder or biliary tree abnormality identified. No significant adrenal finding. No suspicious bowel findings. No hernia, mass or bulky lymphadenopathy noted. No free air, free fluid or pneumatosis. No significant bony abnormality. Lung base atelectasis present. No acute lung base finding. Small hi atal hernia is seen. IMPRESSION: Mild to moderate left-sided hydronephrosis secondary to a 5-6 mm mid left ureter calculu s. No additional left-side stone or stone fragment. On a KUB projection, the stone should be just superior to the left transverse process tip L5. This is an approximately 2 centimeter distal migration from the May 27 CT study. Isodense masses and pyelonephritis are not excluded on stone protocol technique.
[2018-06-03] MEDS: MAGNESIUM HYDROXIDE 8% 30 ML PO PRN (13:51)
--- NOTE | 2018-06-03 15:55 | CON ---
History Of Present Illness: A 47-year-old gentleman with history of diabetes and urolithiasis, 5 mm stone at the level of L4-L5 on the left. He had ESWL performed last week and was sent home. He was doing well until yesterday and had some pain, took a Tylenol #3 and then 2 Motrin. Pain went from a 15 to 6, however pain came back last night at midnight, and came back to the emergency room. CAT sca n showed that the stone is still in the same location in the left ureter at L4-L5 with slight minimal hydronephrosis. The patient is afebrile. White count is stable. He was admitted for pain control overnight. We discussed the options with the patient including placing a stent, going home and come back to the office tomorrow for ESWL versus ureteroscopy. He wishes to stay and have the stent and E SWL performed on Monday, so we will keep him another 2 days. He has been admitted for pain control currently. Allergies: NO KNOWN DRUG ALLERGIES. Home Medications: Metformin, Singulair, Prilosec, Zyrtec, Cipro, Tylenol No 3, Krill oil, Tradjenta, multivitamin, and Zofran. Past Medical History: Diabetes mellitus type 2, kidney stones with urinary repair. Family History: Noncontributory. Social History: Never smoked. Some alcohol use. No drug use. Resides at home Review of Systems: A 10 point review of system otherwise unremarkable in review of systems. Physical Examination: General: The patient is afebrile. Stable. The patient appears stable. is present in room wit h him. Vital signs: Temperature 97.1, pulse rate 54, respirations 16, BP 121/77, sats 98%. HEENT: Atraumatic, normocephalic. Chest: Clear. Heart: S1, S2. ABDOMEN: Soft, nontender. : Unchanged. Laboratory Data: Creatinine 1.3, BUN 19, sodium 142, potassium 4.2, glucose 138. WBC, white count 1 1.3, H and H 15 and 43, platelets 285. Assessment: Persistent 5 mm stone at the level of L4-L5 in the left ureter, status post ESWL 1 week ago. Stone appears to be in the same shape, same size. Plan: Plan is to do re-ESWL and cysto stent placement. We also offered ureteroscopy, possible laser , possible basket. We will try conservative measures first. Should this fail, we will need for him to go on ureteroscopy as a third step home. The patient understands risks and benefits and wishes to proceed with a second shockwave and stent placement at that time. I do not want to do it today [facility] he has to do it on Monday, so we will go ahead and feed the patient currently and preop in [place] for surgery on Monday. Thank you very much. VIOLET/ANTHONY Voice ID: [id number] Report ID: [id number]
[2018-06-03] MEDS: ENOXAPARIN 40 MG/0.4 ML SQ SCH (18:29)
[2018-06-04] MEDS: HYDROCODONE/APAP 7.5/325 MG TAB PO PRN ×4 (00:04→18:22)
[2018-06-04 05:36] LABS: Absolute Lymphocytes (CBC) 1.8 K/uL (0.7-4.9); Absolute Monocytes 0.9 K/uL (0.1-1.3); Basophils % 0.6 % (0-1.3); Eosinophils % 2.1 % (0-4.4); Hematocrit 40.9 % (39.6-49.0); Lymphocytes % 16.4 % (15.3-44.8); MCH 28.7 pg (27.0-35.0); MCV 83.8 fL (80-100); MPV 8.8 fL (7.6-11.3); Monocytes % 8.4 % (3.3-12.3); RBC Red Blood Cell Count 4.88 M/uL (4.33-5.43)
[2018-06-04] MEDS: NACHLORIDE 0.45% 1,000 ML IV SCH ×3 (05:42→21:43)
[2018-06-04] MEDS: PANTOPRAZOLE 40MG TABLET PO SCH (05:42)
[2018-06-04 05:54] LABS: Magnesium 2.1 mg/dL (1.8-2.4); Potassium 4.6 mmol/L (3.5-5.1)
[2018-06-04] MEDS: INSULIN -REGULAR HUMAN 50 UNIT/0.5 ML ML SQ SCH ×4 (07:30→21:00)
[2018-06-04] MEDS: TAMSULOSIN 0.4 MG SR CAP PO SCH (10:22)
[2018-06-04] MEDS: CIPROFLOXACIN 400mg IV 400 MG/200 ML BAG IV SCH ×2 (10:22→21:42)
--- NOTE | 2018-06-04 10:43 | P.PN ---
Subjective Date of Service: 06/04/18 Primary Care Provider: Dr. Pope Chief Complaint: Obstructive ureterolithiasis Subjective: Other (Pain better controlled.) Physical Examination - Vital Signs Temperature: 97.5 F Blood Pressure: 134/79 Pulse: 62 Respirations: 16 Pulse Ox (%): 98 - Physical Exam General: Alert, In no apparent distress, Oriented x3, Cooperative HEENT: Atraumatic Neck: Supple Respiratory: Clear to auscultation bilaterally, Normal air movement Cardiovascular: Normal pulses, Regular rate/rhythm Gastrointestinal: Normal bowel sounds, Soft and benign, Non-distended, Tenderness (Less left flank pain noted) Musculoskeletal: No erythema, No tenderness, No warmth Integumentary: No tenderness/swelling, No erythema, No warmth, No cyanosis Neurological: Normal speech, Normal strength at 5/5 x4 extr, Normal tone, Normal affect - Studies Medications List Reviewed: Yes Assessment & Plan Plan to discharge in: 24 Hours Physician Review Additional Text: Impression: Left recurrent flank pain with 5 mm ureteral stone and left-sided hydronephrosis with recent lithotripsy Diabetes mellitus type 2 GERD Acute renal insufficiency Plan: Left recurrent flank pain with 5 mm ureteral retained stone and left-sided hydronephrosis with recent lithotripsy and acute renal insufficiency: Will continue with IV fluids. Patient will remain NPO after midnight tonight for urological intervention tomorrow. Patient on IV antibiotic therapy, pain control and Flomax. Await further recommendations from urology. Possibly home tomorrow after urological intervention. Diabetes mellitus type 2: Will continue with sliding scale and Accu-Cheks. Will hold his oral medication at this time. Will monitor and adjust appropriately. GERD: Will continue with PPI. Acute Renal insufficiency: Will continue with IV fluids. Will monitor closely. I will turn the service over to Dr. Menezes tomorrow. I will go over the plan of care with him. Time Spent Managing Pts Care (In Minutes): 55
--- OUTSIDE RECORDS SUMMARY | 2018-06-04 12:06 | XMS REPORT ---
[...] End Status Dosage System Date Date PredniSONE [facility] 79906316725 20 MG Orally BID Active 1 tablet Metformin HCl [facility] 80455125945 1000 MG Orally Active 1 tablet Once a day with a meal Flonase [facility] 94506724087 50 MCG/ACT Active 1 spray in Nasally Once a each day nostril Montelukast [facility] 69030809138 10 MG Orally Active 1 tablet Sodium Once a day in the evening Tradjenta [facility] 05626250795 5 MG Orally Once Active 1 tablet a day Omeprazole [facility] 60725986229 40 MG Orally Active 1 capsule Once a day Results Name Result Date Reference Range Unit Abnormality Flag STREP A RAPID ----Result Negative [id number] Summary Purpose eClinicalWorks Submission
--- OUTSIDE RECORDS SUMMARY | 2018-06-04 12:06 | XMS REPORT ---
[...] Status Dosage System Date Cetirizine HCl [facility] 57446201513 10 MG Orally Active 1 tablet Once a day Singulair [facility] 97319528019 10 MG Active TAKE ONE BY MOUTH DAILY Omeprazole [facility] 63053384169 40 MG Orally Active 1 capsule Once a day Metformin HCl [facility] 91456045775 1000 MG Orally Active 1 tablet Once a day with a meal Metformin HCl [facility] 83653438655 1000 MG Active TAKE ONE BY MOUTH TWICE DAILY Montelukast ND 05373461867 10 MG Orally Active 1 tablet in Sodium Once a day the evening [employer] Test [facility] 66499825468 - In Vitro May 25, Active as directed twice a day 2017 Omeprazole [facility] 18572148407 40 MG Active TAKE ONE BY MOUTH DAILY Tradjenta [facility] 81046604228 5 MG Orally Active 1 tablet Once a day PredniSONE ND 18911171959 20 MG Orally Active 1 tablet BID Flonase [facility] 82910333578 50 MCG/ACT Active 1 spray in Nasally Once a each day nostril Results No Known Results Summary Purpose eClinicalWorks Submission
--- OUTSIDE RECORDS SUMMARY | 2018-06-04 12:06 | XMS REPORT ---
:1970 Author Organization eClinicalWorks Care Team Providers Name Role Phone Pope, Na Provider Role Unavailable Allergies No Known Allergies Problems Problem Type Condition Code Onset Dates Condition Status Problem Controlled type 2 diabetes mellitus E11.9 Active without complication, without long-term current use of insulin Problem Allergic rhinitis, unspecified J30.9 Active Problem Hypertriglyceridemia E78.1 Active Problem Hydronephrosis, left N13.30 Active Problem Calcification of lung J98.4 Active Problem Kidney stones N20.0 Active Problem Gastro-esophageal reflux disease K21.9 Active without esophagitis Problem Over weight E66.3 Active Problem Low serum vitamin B12 R79.89 Active Problem Sore throat J02.9 Active Medications No Known Medications Results No Known Results Summary Purpose [employer] Submission
--- OUTSIDE RECORDS SUMMARY | 2018-06-04 12:06 | XMS REPORT ---
[...] End Status Dosage System Date Date Flonase [facility] 20336637192 50 MCG/ACT Active 1 spray in Nasally Once a each day nostril Omeprazole [facility] 02756737661 40 MG Orally Active 1 capsule Once a day Metformin HCl [facility] 07186582555 1000 MG Orally Active 1 tablet Once a day with a meal Tradjenta [facility] 80510757220 5 MG Orally Once Active 1 tablet a day Montelukast [facility] 77992177191 10 MG Orally Active 1 tablet Sodium Once a day in the evening Results No Known Results Summary Purpose eClinicalWorks Submission
--- OUTSIDE RECORDS SUMMARY | 2018-06-04 12:06 | XMS REPORT ---
[...] Status Dosage System Date Date Cetirizine HCl [facility] 32821350102 10 MG Orally Active 1 tablet Once a day PredniSONE ND 04219444611 20 MG Orally BID Active 1 tablet Metformin HCl ND 51980577057 1000 MG Orally Active 1 tablet Once a day with a meal Montelukast ND 37499367503 10 MG Orally Active 1 tablet Sodium Once a day in the evening Flonase ND 65018167010 50 MCG/ACT Active 1 spray in Nasally Once a each day nostril Omeprazole ND 03562590111 40 MG Orally Active 1 capsule Once a day Tradjenta ND 32083585385 5 MG Orally Once Active 1 tablet a day Results No Known Results Summary Purpose eClinicalWorks Submission
[2018-06-04] MEDS: ENOXAPARIN 40 MG/0.4 ML SQ SCH (17:00)
[2018-06-04] MEDS: MAGNESIUM HYDROXIDE 8% 30 ML PO PRN (18:22)
--- NOTE | 2018-06-04 19:09 | PN ---
Subjective: The patient is still in severe pain and is on pain medication around the clock. Objective: Vital Signs: 97.9, pulse 66, respirations 16, BP 135/89, sats 98%. Laboratory Data: White count 11.0, H and H 14 and 40.9, platelet count 268. Urine study shows pH 5. 0, specific gravity 1030, trace ketone, blood 2+. Assessment: A 5-mm stone to the left L4-L5. Plan: Plan is to repeat ESWL, cystoscopy, and stent placement. The patient understands all the gene ral information, alternatives, and risks and wishes to proceed. VIOLET/ANTHONY Voice ID: [id number] Report ID: [id number]
[2018-06-05] MEDS: NACHLORIDE 0.45% 1,000 ML IV SCH ×2 (03:41→13:35)
[2018-06-05 05:59] LABS: Absolute Lymphocytes (CBC) 1.7 K/uL (0.7-4.9); Absolute Monocytes 0.9 K/uL (0.1-1.3); Absolute Neutrophil 5.5 K/uL (1.8-8.0); Basophils % 0.7 % (0-1.3); Eosinophils % 2.8 % (0-4.4); Hematocrit 42.5 % (39.6-49.0); Lymphocytes % 20.1 % (15.3-44.8); MCH 28.7 pg (27.0-35.0); MCV 83.6 fL (80-100); Monocytes % 10.6 % (3.3-12.3); RBC Red Blood Cell Count 5.08 M/uL (4.33-5.43)
[2018-06-05] MEDS: PANTOPRAZOLE 40MG TABLET PO SCH (06:04)
[2018-06-05 06:19] LABS: Magnesium 2.3 mg/dL (1.8-2.4); Potassium 4.7 mmol/L (3.5-5.1)
[2018-06-05 06:54] LABS: Blood Morphology Comment NOT SEEN (NOT SEEN); Platelet Estimate ADEQ
[2018-06-05] MEDS: INSULIN -REGULAR HUMAN 50 UNIT/0.5 ML ML SQ SCH ×2 (07:30→11:30)
[2018-06-05] MEDS ORDERED: INFLUENZA VACCINE (for 3y+) 0.5 ML DOSE IMVAC ONE (08:00)
--- NOTE | 2018-06-05 08:26 | RAD REPORT ---
EXAM DESCRIPTION: RAD - Abdomen 1 View (KUB) - 06/05/2018 7:22 am CLINICAL HISTORY: Abdomen pain. ICD N 20.0 FINDINGS: The bowel gas pattern is unremarkable. A 4 millimeter ureteral calculus lies inferior to the left transverse process of L4. It may be a few millimeters distal within the ureter when compared to 05/29/2018
[2018-06-05] MEDS: TAMSULOSIN 0.4 MG SR CAP PO SCH (08:41)
[2018-06-05] MEDS: CIPROFLOXACIN 400mg IV 400 MG/200 ML BAG IV SCH ×3 (08:41→10:25)
[2018-06-05] MEDS ORDERED: NA CHLORIDE 0.9% 1,000 ML ONE (09:25)
[2018-06-05] MEDS ORDERED: PROPOFOL 200 MG/20 ML VIAL IV ONE (10:13)
[2018-06-05] MEDS ORDERED: FENTANYL CITR 100 MCG/2 ML ONE (10:13)
[2018-06-05] MEDS ORDERED: LIDOCAINE 2% MPF 5 ML VIAL ONE (10:14)
[2018-06-05] MEDS ORDERED: MIDAZOLAM HCL 2 MG/2 ML INJ ONE (10:14)
[2018-06-05] MEDS ORDERED: EPHEDRINE SULF 50 MG/10 ML SYR ONE (10:56)
[2018-06-05] MEDS ORDERED: Mastisol Adhesive Liq ONE (11:16)
[2018-06-05] MEDS ORDERED: KETOROLAC 30 MG/ML INJ ONE (11:20)
[2018-06-05 11:42] VITALS: O2SAT 96
[2018-06-05 11:52] VITALS: BP 125/83; TEMP 98
--- NOTE | 2018-06-06 06:07 | DS ---
Date of Discharge: 06/05/2018 Consultants: Dr. Franco with Urology. Procedures: On 06/05/2018 lithotripsy, cysto with stent placement, diagnosis left ureter stone. Admitting Diagnoses: 1.Left hydronephrosis with obstructing calculus. 2.Diabetes mellitus type 2 without long-term use of insulin with hyperglycemia. Discharge Diagnoses: 1.Left-sided hydronephrosis with obstructing calculus, status post cysto, lithotripsy, and stent rhona cement. 2.Acute kidney injury, secondary to hydronephrosis. 3.Diabetes mellitus type 2 with hyperglycemia without long-term use of insulin. Hospital Course: The patient is a 47-year-old male with past medical history of previous kidney ston es and diabetes, who was diagnosed with a 5 mm stone in the ER, was evaluated by Dr. Franco in his off ice, and lithotripsy was recommended. However, the patient had acute exacerbation of his pain and th erefore came into the ER for re-evaluation. He was found to have elevated white count. CT scan of t he abdomen again showed the 5 mm stone on the left ureteral area, slightly distal, with mild hydronep hrosis. Initially, his kidney function was normal; however, creatinine did go up to 1.7 and then to 2.1. The patient was seen by Dr. Franco with Urology, who performed the above-mentioned procedure for the left-sided stone. Urine culture did not show any growth. The patient was started on IV fluids and IV antibiotics. He did well postoperatively. The patient was continued on tamsulosin and pain m edication. The patient was then cleared for discharge from Neurology standpoint. The patient was th en discharged home in stable condition. Activity: As tolerated. No driving or operating heavy machinery while on narcotics. Diet: Diabetic. Followup: Follow up with primary care physician, Dr. Frazier, in 2-3 days. Follow up with Urologist, Dr. Franco, in 1 week. Return to ER for worsening condition. To repeat BMP and kidney function withi n 1 week. The patient was explained regarding his kidney function and he understands that he needs t o hold the metformin for at least 48-72 hours and to have a BMP repeated prior to restarting the metf ormin to ensure that his kidney function has normalized following the hydronephrosis. The patient wi ll be on Keflex as well as some oxybutynin to prevent spasms. Physical Examination: General: Awake, alert, oriented, no acute distress. CV: S1, S2. No murmurs. Respiratory: Moving air well bilaterally. Abdomen: Abdomen is soft, nontender, nondistended. Positive bowel sounds. Extremities: No clubbing, cyanosis, edema. Neurologic: Nonfocal. SA/MODL Voice ID: [id number] Report ID: [id number]
== END 2018-06-05 15:45 | disposition home or self-care (01) ==
LOC: ER 23:54 → 4TH 06-03 05:41
PROVIDERS: ADMIT Internal Medicine; ATTEND Internal Medicine
PROC: 0T778DZ Dilation of Left Ureter with Intraluminal Device, Via Natural or Artificial Opening Endoscopic (ICD-10-PCS; 2018-06-05)
PROC: 0TF4XZZ Fragmentation in Left Kidney Pelvis, External Approach (ICD-10-PCS; principal; 2018-06-05 10:00)
DX: N13.2 Hydronephrosis with renal and ureteral calculous obstruction (principal); N17.9 Acute kidney failure, unspecified; N39.0 Urinary tract infection, site not specified; E11.65 Type 2 diabetes mellitus with hyperglycemia; K21.9 Gastro-esophageal reflux disease without esophagitis
CPT/HCPCS: 36415; 50590; 74018; 74176; 76377; 80048; 81003; 81015; 82962; 83735; 85025; 87086; 87088; 96361; 96365; 96375; 99285; G0378; J0744; J1650; J2175; J2250; J2270; J2405; J3010; J3475; J7030; Q9967

== ENCOUNTER 2019-03-25 19:37 | Observation (INO) | payer BC ==
--- OUTSIDE RECORDS SUMMARY | 2019-03-25 19:40 | XMS REPORT ---
[...] Medications Results No Known Results Summary Purpose [employer] Submission
--- OUTSIDE RECORDS SUMMARY | 2019-03-25 19:40 | XMS REPORT ---
[...] Status Dosage System Date Date Cetirizine HCl [facility] 43429921835 10 MG Orally Active 1 tablet Once a day PredniSONE ND 68823256481 20 MG Orally BID Active 1 tablet Metformin HCl ND 47596882764 1000 MG Orally Active 1 tablet Once a day with a meal Montelukast ND 17346892366 10 MG Orally Active 1 tablet Sodium Once a day in the evening Flonase ND 54160785950 50 MCG/ACT Active 1 spray in Nasally Once a each day nostril Omeprazole ND 39832961068 40 MG Orally Active 1 capsule Once a day Tradjenta ND 43680428145 5 MG Orally Once Active 1 tablet a day Results No Known Results Summary Purpose eClinicalWorks Submission
--- OUTSIDE RECORDS SUMMARY | 2019-03-25 19:40 | XMS REPORT ---
[...] Medications Results No Known Results Summary Purpose [employer] Submission
--- OUTSIDE RECORDS SUMMARY | 2019-03-25 19:40 | XMS REPORT ---
[...] R79.89 Active Problem Sore throat J02.9 Active Assessment Controlled type 2 diabetes mellitus E11.9 Active without complication, without long-term current use of insulin Assessment Kidney stones N20.0 Active Assessment Hydronephrosis, left N13.30 Active Medications No Known Medications Results No Known Results Summary Purpose [employer] Submission
--- OUTSIDE RECORDS SUMMARY | 2019-03-25 19:40 | XMS REPORT ---
:1970 Author Organization eClinicalWorks Care Team Providers Name Role Phone Pope, Na Provider Role Unavailable Allergies, Adverse Reactions, Alerts Substance Reaction Event Type N.K.D.A. 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 Assessment Acute renal insufficiency N28.9 Active Assessment Hematuria, unspecified type R31.9 Active Assessment Kidney stones N20.0 Active Assessment Controlled type 2 diabetes mellitus E11.9 Active without complication, without long-term current use of insulin Problem Controlled type 2 diabetes mellitus E11.9 Active without complication, without long-term current use of insulin Assessment Hydronephrosis, left N13.30 Active Problem Hypertriglyceridemia E78.1 Active Medications Medication Code Code Instructions Start End Status Dosage System Date Date Omeprazole [facility] 32484363534 40 MG Orally Active 1 capsule Once a day Montelukast [facility] 82600195795 10 MG Orally Active 1 tablet in Sodium Once a day the evening PredniSONE ND 70560190913 20 MG Orally Active 1 tablet BID Metformin HCl ND 11964018754 1000 MG Orally Active 1 tablet Once a day with a meal Omeprazole [facility] 25531600807 40 MG Active TAKE ONE BY MOUTH DAILY Metformin HCl [facility] 01543509510 1000 MG Active TAKE ONE BY MOUTH TWICE DAILY Tradjenta [facility] 37223645437 5 MG Orally Active 1 tablet Once a day Flonase [facility] 63704465266 50 MCG/ACT Active 1 spray in Nasally Once a each day nostril [employer] Test NDC 80628378168 - In Vitro May 25, Active as directed twice a day 2017 Cetirizine HCl [facility] 95044191324 10 MG Orally Active 1 tablet Once a day Singulair [facility] 37750405454 10 MG Active TAKE ONE BY MOUTH DAILY Results No Known Results Summary Purpose eClinicalWorks Submission
--- OUTSIDE RECORDS SUMMARY | 2019-03-25 19:40 | XMS REPORT ---
[...] Status Dosage System Date Cetirizine HCl [facility] 75954206390 10 MG Orally Active 1 tablet Once a day Singulair [facility] 79954100977 10 MG Active TAKE ONE BY MOUTH DAILY Omeprazole [facility] 69956194094 40 MG Orally Active 1 capsule Once a day Metformin HCl [facility] 00896013033 1000 MG Orally Active 1 tablet Once a day with a meal Metformin HCl [facility] 95552951047 1000 MG Active TAKE ONE BY MOUTH TWICE DAILY Montelukast ND 18359489665 10 MG Orally Active 1 tablet in Sodium Once a day the evening [employer]ger Test [facility] 42930871407 - In Vitro May 25, Active as directed twice a day [address] [facility] 16960151167 40 MG Active TAKE ONE BY MOUTH DAILY Tradjenta [facility] 40839597696 5 MG Orally Active 1 tablet Once a day PredniSONE ND 80517471719 20 MG Orally Active 1 tablet BID Flonase [facility] 61855310869 50 MCG/ACT Active 1 spray in Nasally Once a each day nostril Results No Known Results Summary Purpose eClinicalWorks Submission
--- OUTSIDE RECORDS SUMMARY | 2019-03-25 19:40 | XMS REPORT ---
[...] Problem Calcification of lung J98.4 Active Assessment Kidney stones N20.0 Active Assessment Hydronephrosis, left N13.30 Active Problem Controlled type 2 diabetes mellitus E11.9 Active without complication, without long-term current use of insulin Assessment Calcification of lung J98.4 Active Problem Hypertriglyceridemia E78.1 Active Medications Medication Code Code Instructions Start End Status Dosage System Date Date Metformin HCl [facility] 15210637348 1000 MG Active TAKE ONE BY MOUTH TWICE DAILY Singulair [facility] 22347702068 10 MG Active TAKE ONE BY MOUTH DAILY [employer] Test [facility] 81248732766 - In Vitro May 25, Active as directed twice a day 2017 Flonase [facility] 09389921103 50 MCG/ACT Active 1 spray in Nasally Once a each day nostril Cetirizine HCl [facility] 09629096043 10 MG Orally Active 1 tablet Once a day Omeprazole ND 11282410495 40 MG Orally Active 1 capsule Once a day Metformin HCl [facility] 95777144905 1000 MG Orally Active 1 tablet Once a day with a meal Tradjenta [facility] 55723044118 5 MG Orally Active 1 tablet Once a day Montelukast ND 85407168959 10 MG Orally Active 1 tablet in Sodium Once a day the evening PredniSONE [facility] 42948841697 20 MG Orally Active 1 tablet BID Omeprazole [facility] 58744864430 40 MG Active TAKE ONE BY MOUTH DAILY Results No Known Results Summary Purpose eClinicalWorks Submission
--- OUTSIDE RECORDS SUMMARY | 2019-03-25 19:41 | XMS REPORT ---
[...] Problem Calcification of lung J98.4 Active Assessment Allergic rhinitis, unspecified J30.9 Active Assessment Chronic renal impairment, stage 2 N18.2 Active (mild) Assessment Controlled type 2 diabetes mellitus E11.9 Active without complication, without long-term current use of insulin Assessment Gastro-esophageal reflux disease K21.9 Active without esophagitis Problem Controlled type 2 diabetes mellitus E11.9 Active without complication, without long-term current use of insulin Assessment Hypertriglyceridemia E78.1 Active Problem Hypertriglyceridemia E78.1 Active Medications Medication Code Code Instructions Start End Status Dosage System Date Date Montelukast [facility] 61804754367 10 MG Orally Active 1 tablet in Sodium Once a day the evening Flonase [facility] 76353827370 50 MCG/ACT Active 1 spray in Nasally Once a each day nostril Singulair [facility] 06027660777 10 MG Active TAKE ONE BY MOUTH DAILY Cetirizine HCl ND 36259662934 10 MG Orally Active 1 tablet Once a day Tradjenta [facility] 36329313861 5 MG Orally Active 1 tablet Once a day GlipiZIDE ER ND 00539894213 2.5 MG Orally Active 1 tablet Once a day with largest meal [employer] Test [facility] 66847233838 - In Vitro Active as directed twice a day Omeprazole [facility] 53107037880 40 MG Active TAKE ONE BY MOUTH DAILY Metformin HCl [facility] 34851824773 1000 MG Active TAKE ONE BY MOUTH TWICE DAILY PredniSONE [facility] 92799930717 20 MG Orally Active 1 tablet BID Omeprazole [facility] 44546520617 40 MG Orally Active 1 capsule Once a day Metformin HCl [facility] 82157176098 1000 MG Orally Active 1 tablet twice a day with a meal Results No Known Results Summary Purpose eClinicalWorks Submission
--- OUTSIDE RECORDS SUMMARY | 2019-03-25 19:41 | XMS REPORT ---
[...] Gastro-esophageal reflux disease K21.9 Active without esophagitis Assessment Low serum vitamin B12 R79.89 Active Assessment Acute renal insufficiency N28.9 Active Assessment Controlled type 2 diabetes mellitus E11.9 Active without complication, without long-term current use of insulin Assessment Hypertriglyceridemia E78.1 Active Problem Controlled type 2 diabetes mellitus E11.9 Active without complication, without long-term current use of insulin Assessment Kidney stones N20.0 Active Problem Hypertriglyceridemia E78.1 Active Medications Medication Code Code Instructions Start End Status Dosage System Date Singulair [facility] 63689072496 10 MG Active TAKE ONE BY MOUTH DAILY Cetirizine HCl [facility] 48145620852 10 MG Orally Active 1 tablet Once a day GlipiZIDE ER [facility] 22530486795 5 MG Orally Sep 21, Active 1 tablet Once a day 2018 Tradjenta [facility] 13925078700 5 MG Orally Active 1 tablet Once a day PredniSONE [facility] 20385852691 20 MG Orally Active 1 tablet BID Flonase [facility] 66057600107 50 MCG/ACT Active 1 spray in Nasally Once a each day nostril Montelukast [facility] 90059353200 10 MG Orally Active 1 tablet in Sodium Once a day the evening Kroger Test [facility] 55934001104 - In Vitro Active as directed twice a day Omeprazole [facility] 92944755348 40 MG Active TAKE ONE BY MOUTH DAILY Metformin HCl [facility] 60570343995 1000 MG Orally Active 1 tablet twice a day with a meal Metformin HCl [facility] 74851551249 1000 MG Active TAKE ONE BY MOUTH TWICE DAILY Omeprazole [facility] 17106067997 40 MG Orally Active 1 capsule Once a day Results No Known Results Summary Purpose eClinicalWorks Submission
--- OUTSIDE RECORDS SUMMARY | 2019-03-25 19:41 | XMS REPORT ---
:1970 Author Organization eClinicalWorks Care Team Providers Name Role Phone Pope, Na Provider Role Unavailable Allergies No Known Allergies Problems Problem Type Condition Code Onset Dates Condition Status Problem Allergic rhinitis, unspecified J30.9 Active Problem Gastro-esophageal reflux disease K21.9 Active without esophagitis Problem Over weight E66.3 Active Assessment Controlled type 2 diabetes mellitus E11.9 Active without complication, without long-term current use of insulin Problem Controlled type 2 diabetes mellitus E11.9 Active without complication, without long-term current use of insulin Problem Hypertriglyceridemia E78.1 Active Problem 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
[2019-03-25] MEDS ORDERED: MORPHINE 4 MG/ML SYR ONE (20:37)
[2019-03-25] MEDS ORDERED: NA CHLORIDE 0.9% 1,000 ML ONE ×2 (20:37→21:58)
[2019-03-25] MEDS ORDERED: ONDANSETRON 4 MG/2 ML VIAL ONE (20:37)
--- NOTE | 2019-03-25 20:49 | RAD REPORT ---
EXAM DESCRIPTION: CT - Stone Protocol - 03/25/2019 8:37 pm CLINICAL HISTORY: Right-sided abdominal pain and flank pain COMPARISON: CT study June 2018 and May 2018 TECHNIQUE: Axial 5 mm thick images were obtained without oral or IV contrast. The [id number] span s the entirety of the system partially obscuring uppermost abdomen and lung bases. All CT scans are performed using dose optimization technique as appropriate and may include automated exposure control or mA/KV adjustment according to patient size. FINDINGS: Mild hydronephrosis of the proximal right collecting system present secondary to a 5 rochelle meter proximal right ureter calcification. There is a 5 millimeter nonobstructing calculus in the low er pole of the right kidney and a 4 mm calcification in the upper pole calyx on the right. No left-si ded hydronephrosis or obstructing calculus. The obstructing calculus when viewed on a KUB projection is positioned near the right lateral margin of the L3-4 disc space. No suspicious renal masses. Isode nse masses and pyelonephritis are not excluded on a stone protocol CT scan. No urinary bladder suspic ious finding. No significant adrenal finding. Imaged portions of the liver, spleen and pancreas show no suspicious findings on non-contrast imaging . No gallbladder or biliary tree abnormality identified. No suspicious bowel findings. No hernia, mass or bulky lymphadenopathy noted. No free air, free fluid or inflammatory stranding. No significant bony abnormality. No acute lung base finding. Patulous or mildly dilated distal thoracic esophagus present. Small pleur al abutting nodule lateral left base has not changed back to May 2018. IMPRESSION: Mild right-sided hydronephrosis secondary to a proximal right ureter 5 mm calcification. When viewed from a KUB projection the obstructing calculus would be positioned near the right lateral margin of the L3-4 disc space. Nonobstructing 4-5 mm calculi in the lower pole and upper pole calyx of the right kidney. A 3 mm calc ification is present lateral mid left kidney. Isodense masses and pyelonephritis are not excluded on stone protocol technique.
[2019-03-25 21:01] LABS: Absolute Lymphocytes (CBC) 1.9 K/uL (0.7-4.9); Basophils % 0.8 % (0-1.3); Hematocrit 43.9 % (39.6-49.0); Lymphocytes % 22.7 % (15.3-44.8); RBC Red Blood Cell Count 5.14 M/uL (4.33-5.43)
[2019-03-25 21:06] LABS: Albumin 3.5 g/dL (3.4-5.0); Bilirubin Direct 0.1 mg/dL (0-0.2); Bilirubin Total 0.4 mg/dL (0.2-1.0); Potassium 3.9 mmol/L (3.5-5.1); Protein, Total 7.1 g/dL (6.4-8.2)
[2019-03-25] MEDS ORDERED: TAMSULOSIN 0.4 MG SR CAP ONE (21:57)
[2019-03-25 22:25] LABS: Urine Blood 3+ (NEG); Urine Glucose NEGATIVE (NEG); Urine Protein NEGATIVE (NEG); Urine Specific Gravity 1.015 (1.005-1.030)
--- NOTE | 2019-03-25 23:47 | EDPHYS ---
Physician Documentation [facility] Name: Fermin Mc Age: 48 yrs Sex: Male : 1970 Arrival Date: 03/25/2019 Time: 19:43 Bed 13 Private MD: Buffy Pope ED Physician Josr Millan HPI: 03/25 20:03 This 48 yrs old Male presents to ER via Ambulatory with complaints of pm1 Possible Kidney Stone. 20:03 The patient complains of pain in the right low back. Onset: The symptoms/episode pm1 began/occurred today. Modifying factors: The symptoms are alleviated by nothing. the symptoms are aggravated by nothing. Associated signs and symptoms: Pertinent positives: nausea, vomiting, Pertinent negatives: diarrhea, dysuria, fever. Severity of pain: in the emergency department the pain is actually worse. The patient has experienced similar episodes in the past, multiple times. Historical: - Allergies: 19:49 No Known Allergies; jb4 - Home Meds: 19:49 metformin 1,000 mg Oral tab 1 tab 2 times per day [Active]; omeprazole 40 mg Oral cpDR jb4 1 cap once daily [Active]; Singulair 10 mg Oral tab 1 tab once daily [Active]; trajenta daily [Active]; Glipizide Oral [Active]; - PMHx: 19:49 Diabetes - NIDDM; GERD; Kidney stones; seasonal allergies; Hernia; jb4 - PSHx: 19:49 Lithotripsy; Hernia repair; Kidney stents; jb4 - Immunization history:: Adult Immunizations up to date. - Social history:: Smoking status: Patient/guardian denies using tobacco, Patient uses alcohol, 4-5 drinks per week. - Ebola Screening: : No symptoms or risks identified at this time. ROS: 20:03 Constitutional: Negative for fever, chills, and weight loss, Cardiovascular: Negative pm1 for chest pain, palpitations, and edema, Respiratory: Negative for shortness of breath, cough, wheezing, and pleuritic chest pain, Abdomen/GI: Negative for abdominal pain, nausea, vomiting, diarrhea, and constipation. 20:03 : Negative for injury, bleeding, discharge, and swelling, MS/Extremity: Negative for injury and deformity, Skin: Negative for injury, rash, and discoloration, Neuro: Negative for headache, weakness, numbness, tingling, and seizure. 20:03 Back: Positive for flank pain, on the right, Negative for decreased range of motion. Exam: 20:03 Constitutional: This is a well developed, well nourished patient who is awake, alert, pm1 and in no acute distress. Head/Face: Normocephalic, atraumatic. Chest/axilla: Normal chest wall appearance and motion. Nontender with no deformity. No lesions are appreciated. Cardiovascular: Regular rate and rhythm with a normal S1 and S2. No gallops, murmurs, or rubs. Normal PMI, no JVD. No pulse deficits. Respiratory: Lungs have equal breath sounds bilaterally, clear to auscultation and percussion. No rales, rhonchi or wheezes noted. No increased work of breathing, no retractions or nasal flaring. Abdomen/GI: Soft, non-tender, with normal bowel sounds. No distension or tympany. No guarding or rebound. No evidence of tenderness throughout. 20:03 Skin: Warm, dry with normal turgor. Normal color with no rashes, no lesions, and no evidence of cellulitis. MS/ Extremity: Pulses equal, no cyanosis. Neurovascular intact. Full, normal range of motion. 20:03 Back: normal spinal alignment noted, CVA tenderness, is noted on the right, vertebral tenderness, is not appreciated. 20:03 Neuro: Orientation: is normal, Motor: is normal, moves all fours. Vital Signs: 19:49 BP 119 / 87; Pulse 65; Resp 16; Temp 97.8(TE); Pulse Ox 95% on R/A; Weight 83.91 kg jb4 (R); Height 5 ft. 7 in. (170.18 cm) (R); Pain 6/10; 21:00 BP 135 / 86; Pulse 68; Resp 16; Pulse Ox 100% on R/A; jb4 22:30 BP 123 / 78; Pulse 60; Resp 16; Pulse Ox 99% on R/A; jb4 23:30 BP 114 / 82; Pulse 71; Resp 16; Pulse Ox 96% on R/A; jb4 03/26 00:45 BP 106 / 74; Pulse 62; Resp 16; Temp 97.7(TE); Pulse Ox 98% on R/A; jb4 03/25 19:49 Body Mass Index 28.97 (83.91 kg, 170.18 cm) jb4 MDM: 03/25 19:51 Patient medically screened. braxton 21:39 Data reviewed: vital signs. Data interpreted: Pulse oximetry: on room air is 100 %. pm1 Interpretation: normal. 22:01 Physician consultation: Tika Franco MD was called at 21:34, left message. pm1 23:35 Physician consultation: Tika Franco MD was called at 23:30, was contacted at 23:30, pm1 regarding consult, patient's condition, and will see patient tomorrow, would like admission per Dr. Garrison Srivastava MD KUB and [place] 1 gm IV now, NPO midnight. 23:43 Physician consultation: Garrison Srivastava MD was called at 23:43, was contacted at 23:43, pm1 regarding admission, patient's condition. 03/25 19:57 Order name: Basic Metabolic Panel; Complete Time: 21:09 pm1 03/25 19:57 Order name: CBC with Diff; Complete Time: 21:04 pm1 03/25 19:57 Order name: Creatinine for Radiology; Complete Time: 21:09 pm1 03/25 19:57 Order name: Hepatic Function; Complete Time: 21:09 pm1 03/25 19:57 Order name: Lipase; Complete Time: 21:09 pm1 03/25 22:19 Order name: Urine Dipstick--Ancillary (enter results); Complete Time: 22:26 ar5 03/25 19:57 Order name: CT Stone Protocol; Complete Time: 20:53 pm1 03/25 23:43 Order name: XRAY Abdomen 1 View (KUB) pm1 03/26 00:27 Order name: Comprehensive Metabolic Panel EDMS 03/26 00:27 Order name: Magnesium EDMS 03/26 00:27 Order name: Phosphorus EDMS 03/26 00:27 Order name: Protime (+INR) EDMS 03/26 00:28 Order name: CBC with Automated Diff EDMS 03/26 00:28 Order name: PTT, Activated Partial Thromb EDMS 03/25 19:57 Order name: IV Saline Lock; Complete Time: 20:17 pm1 03/25 19:57 Order name: Labs collected and sent; Complete Time: 20:17 pm1 03/25 19:57 Order name: Urine Dipstick-Ancillary (obtain specimen); Complete Time: 22:21 pm1 03/26 00:28 Order name: CONS Physician Consult EDIA 03/26 00:28 Order name: EKG Electrocardiogram EDIA Administered Medications: 20:25 Drug: Zofran 4 mg Route: IVP; Site: right antecubital; jb4 20:55 Follow up: Response: No adverse reaction jb4 20:27 Drug: morphine 4 mg Route: IVP; Site: right antecubital; jb4 20:57 Follow up: Response: No adverse reaction; Pain is decreased jb4 20:28 Drug: NS 0.9% 1000 ml Route: IV; Rate: 1000 ml; Site: right antecubital; jb4 21:00 Follow up: Response: No adverse reaction; IV Status: Completed infusion; IV Intake: jb4 1000ml 21:45 Drug: NS 0.9% 1000 ml Route: IV; Rate: 1000 ml; Site: right antecubital; jb4 22:20 Follow up: Response: No adverse reaction; IV Status: Completed infusion; IV Intake: jb4 1000ml 21:45 Drug: Flomax 0.4 mg Route: PO; jb4 22:33 Follow up: Response: No adverse reaction [facility] 03/26 00:17 Drug: Rocephin 1 grams Route: IV; Rate: calculated rate; Site: right antecubital; jb4 00:19 Follow up: Response: No adverse reaction; IV Status: Completed infusion; IV Intake: [id number] Disposition: 07:15 Co-signature as Attending Physician, Josr Millan MD I agree with the assessment and braxton plan of care. Disposition: 03/25/19 23:46 Hospitalization ordered by Garrison Srivastava for Observation. Preliminary diagnosis is Hydronephrosis with renal and ureteral calculous obstruction. - Bed requested for Telemetry/MedSurg (observation). - Status is Observation. jb4 - Condition is Stable. - Problem is new. - Symptoms have improved. UTI on Admission? No Signatures: Dispatcher [employer] EDIA Tory Patel RN Josr Wick MD MD cha Marinas, Patrick, ELEMENTARY SCHOOL PROFESSIONAL [employer] PROFESSIONAL pm1 Chip Marino RN RN jb4 Corrections: (The following items were deleted from the chart) 00:47 03/25 23:46 Hospitalization Ordered by Garrison Srivastava MD for Observation. Preliminary mw diagnosis is Hydronephrosis with renal and ureteral calculous obstruction. Bed requested for Telemetry/MedSurg (observation). Status is Observation. Condition is Stable. Problem is new. Symptoms have improved. UTI on Admission? No. pm1 03/26 01:21 00:47 03/25/2019 23:46 Hospitalization Ordered by Garrison Srivastava MD for Observation. jb4 Preliminary diagnosis is Hydronephrosis with renal and ureteral calculous obstruction. Bed requested for Telemetry/MedSurg (observation). Status is Observation. Condition is Stable. Problem is new. Symptoms have improved. UTI on Admission? No. mw
--- NOTE | 2019-03-25 23:47 | ER ---
Nurse's Notes [facility] Name: Fermin Mc Age: 48 yrs Sex: Male : 1970 Arrival Date: 03/25/2019 Time: 19:43 Bed 13 Private MD: Buffy Pope Diagnosis: Hydronephrosis with renal and ureteral calculous obstruction Presentation: 03/25 19:49 Presenting complaint: Patient states: I have a kidney stone on my right side. It jb4 started hurting earlier today and when I got home I threw up from the pain. I called doctor Salvador and he wanted me to come in to get a work up for possible surgery tomorrow. 19:49 Transition of care: patient was not received from another setting of care. Onset of jb4 symptoms was March 25, 2019. Risk Assessment: Do you want to hurt yourself or someone else? Patient reports no desire to harm self or others. Initial Sepsis Screen: Does the patient meet any 2 criteria? No. Patient's initial sepsis screen is negative. Does the patient have a suspected source of infection? No. Patient's initial sepsis screen is negative. Care prior to arrival: None. 19:49 Method Of Arrival: Ambulatory jb4 19:49 Acuity: VANNESSA 3 jb4 Triage Assessment: 19:49 General: Appears in no apparent distress. uncomfortable, Behavior is calm, cooperative, jb4 appropriate for age. Pain: Complains of pain in right low back Pain radiates to anterior aspect of right lateral abdomen, posterior aspect of right lateral abdomen and right lower quadrant Pain currently is 6 out of 10 on a pain scale. Quality of pain is described as stabbing, Pain began earlier today. Is continuous. EENT: No signs and/or symptoms were reported regarding the EENT system. Neuro: Level of Consciousness is awake, alert, obeys commands, Oriented to person, place, time, situation. Cardiovascular: Patient's skin is warm and dry. Respiratory: Airway is patent Respiratory effort is even, unlabored, Respiratory pattern is regular, symmetrical. GI: Reports vomiting once RADIOLOGY RESIDENT due to pain, denies nausea currently. : Reports pain in right flank(s). Derm: Skin is intact, Skin is pink, warm \T\ dry. Musculoskeletal: Circulation, motion, and sensation intact. Historical: - Allergies: 19:49 No Known Allergies; jb4 - Home Meds: 19:49 metformin 1,000 mg Oral tab 1 tab 2 times per day [Active]; omeprazole 40 mg Oral cpDR jb4 1 cap once daily [Active]; Singulair 10 mg Oral tab 1 tab once daily [Active]; trajenta daily [Active]; Glipizide Oral [Active]; - PMHx: 19:49 Diabetes - NIDDM; GERD; Kidney stones; seasonal allergies; Hernia; jb4 - PSHx: 19:49 Lithotripsy; Hernia repair; Kidney stents; jb4 - Immunization history:: Adult Immunizations up to date. - Social history:: Smoking status: Patient/guardian denies using tobacco, Patient uses alcohol, 4-5 drinks per week. - Ebola Screening: : No symptoms or risks identified at this time. Screenin:49 Abuse screen: Denies threats or abuse. Nutritional screening: No deficits noted. jb4 Tuberculosis screening: No symptoms or risk factors identified. Fall Risk None identified. Assessment: 19:49 General: see triage assessment. jb4 21:00 Reassessment: Patient appears in no apparent distress at this time. Patient and/or jb4 family updated on plan of care and expected duration. Pain level reassessed. Patient is alert, oriented x 3, equal unlabored respirations, skin warm/dry/pink. Patient states feeling better. 22:00 Reassessment: Patient appears in no apparent distress at this time. Patient and/or jb4 family updated on plan of care and expected duration. Pain level reassessed. Patient is alert, oriented x 3, equal unlabored respirations, skin warm/dry/pink. 22:58 Reassessment: Patient appears in no apparent distress at this time. Patient and/or jb4 family updated on plan of care and expected duration. Pain level reassessed. Patient is alert, oriented x 3, equal unlabored respirations, skin warm/dry/pink. 03/26 00:00 Reassessment: Patient appears in no apparent distress at this time. Patient and/or jb4 family updated on plan of care and expected duration. Pain level reassessed. Patient is alert, oriented x 3, equal unlabored respirations, skin warm/dry/pink. 00:50 Reassessment: Patient appears in no apparent distress at this time. Patient and/or jb4 family updated on plan of care and expected duration. Pain level reassessed. Patient is alert, oriented x 3, equal unlabored respirations, skin warm/dry/pink. 01:10 Reassessment: Report called to MANDI Holly. [facility] Vital Signs: 03/25 19:49 BP 119 / 87; Pulse 65; Resp 16; Temp 97.8(TE); Pulse Ox 95% on R/A; Weight 83.91 kg jb4 (R); Height 5 ft. 7 in. (170.18 cm) (R); Pain 6/10; 21:00 BP 135 / 86; Pulse 68; Resp 16; Pulse Ox 100% on R/A; jb4 22:30 BP 123 / 78; Pulse 60; Resp 16; Pulse Ox 99% on R/A; jb4 23:30 BP 114 / 82; Pulse 71; Resp 16; Pulse Ox 96% on R/A; jb4 03/26 00:45 BP 106 / 74; Pulse 62; Resp 16; Temp 97.7(TE); Pulse Ox 98% on R/A; jb4 03/25 19:49 Body Mass Index 28.97 (83.91 kg, 170.18 cm) 4 ED Course: 03/25 19:43 Patient arrived in ED. es 19:43 Buffy Pope MD is Private Physician. es 19:49 Chip Marino, MANDI is Primary Nurse. jb4 19:49 Arm band placed on right wrist. jb4 19:49 Patient has correct armband on for positive identification. Placed in gown. Bed in low jb4 position. Call light in reach. Side rails up X 1. Pulse ox on. NIBP on. 19:50 Jacek Castano NP is PHCP. pm1 19:50 Josr Millan MD is Attending Physician. pm1 20:00 Triage completed. jb4 20:00 Initial lab(s) drawn, by me, sent to lab. Inserted saline lock: 18 gauge in right jb4 antecubital area, using aseptic technique. Blood collected. 20:37 CT Stone Protocol In Process Unspecified. EDMS 23:44 Garrison Srivastava MD is Hospitalizing Provider. pm1 03/26 00:05 XRAY Abdomen 1 View (KUB) In Process Unspecified. EDMS 01:10 No provider procedures requiring assistance completed. Patient admitted, IV remains in jb4 place. Administered Medications: 03/25 20:25 Drug: Zofran 4 mg Route: IVP; Site: right antecubital; jb4 20:55 Follow up: Response: No adverse reaction jb4 20:27 Drug: morphine 4 mg Route: IVP; Site: right antecubital; jb4 20:57 Follow up: Response: No adverse reaction; Pain is decreased jb4 20:28 Drug: NS 0.9% 1000 ml Route: IV; Rate: 1000 ml; Site: right antecubital; jb4 21:00 Follow up: Response: No adverse reaction; IV Status: Completed infusion; IV Intake: jb4 1000ml 21:45 Drug: NS 0.9% 1000 ml Route: IV; Rate: 1000 ml; Site: right antecubital; jb4 22:20 Follow up: Response: No adverse reaction; IV Status: Completed infusion; IV Intake: jb4 1000ml 21:45 Drug: Flomax 0.4 mg Route: PO; jb4 22:33 Follow up: Response: No adverse reaction 4 03/26 00:17 Drug: Rocephin 1 grams Route: IV; Rate: calculated rate; Site: right antecubital; jb4 00:19 Follow up: Response: No adverse reaction; IV Status: Completed infusion; IV Intake: [id number] Intake: 03/25 21:00 IV: 1000ml; Total: 1000ml. jb4 22:20 IV: 1000ml; Total: 2000ml. jb4 03/26 00:19 IV: 10ml; Total: 2010ml. jb4 Outcome: 03/25 23:46 Decision to Hospitalize by Provider. pm1 03/26 01:18 Admitted to Tele accompanied by nurse, via wheelchair, room 416, with chart, Report jb4 called to MANDI Holly Condition: stable Instructed on the need for admit, Demonstrated understanding of instructions. 01:21 Patient left the ED. jb4 Signatures: Dispatcher [employer] Anju Hernandez Patrick, CIRCLE BEVELER CIRCLE BEVELER pm1 Chip Marino RN RN jb4 Corrections: (The following items were deleted from the chart) 01:20 01:19 Response: No adverse reaction; IV Status: Completed infusion; IV Intake: 10ml jb jb4
[2019-03-26] MEDS ORDERED: CEFTRIAXONE/SWI 1gm 1 GM/10 ML SYR ONE (00:14)
[2019-03-26] MEDS ORDERED: HYDROMORPHONE HCL 1 MG/ML INJ IV PRN (00:17)
[2019-03-26] MEDS ORDERED: ONDANSETRON 4 MG/2 ML VIAL IV PRN (00:17)
[2019-03-26] MEDS ORDERED: ACETAMINOPHEN 500 MG TAB PO PRN (00:17)
[2019-03-26 01:32] VITALS: BMI 29.3
[2019-03-26] MEDS: NA CHLORIDE 0.9% 1,000 ML IV SCH ×2 (02:07→11:00)
--- NOTE | 2019-03-26 05:27 | P.HP ---
Certification for Inpatient Patient admitted to: Observation With expected LOS: <2 Midnights Patient will require the following post-hospital care: None Practitioner: I am a practitioner with admitting privileges, knowledge of patient current condition, hospital course, and medical plan of care. Services: Services provided to patient in accordance with Admission requirements found in Title 42 Section 412.3 of the Code of Federal Regulations Patient History Date of Service: 03/26/19 Reason for admission: Nephrolithiasis/obstructive uropathy History of Present Illness: Patient is a 48-year-old gentleman who has a history of nephrolithiasis. He was seen a few months ago with similar complaints. At that time he states he had lithotripsy performed on 3 different occasions. Unfortunately, the stone was not small enough so he needed cystoscopy with stone extraction. Stone was sent to pathology but there is no report that lets me know what kind of stone was identified. I believe he had a stent placed as well at that time. He had recurrence of his symptoms and his workup in the ER confirmed that he had nephrolithiasis. ER physician spoke to Urology and patient is set up for cystoscopy in a.m.. Patient with no significant cardiac risks. Has history of hypertension and diabetes. Denies any cardiovascular disease. Patient is low risk for any cardiopulmonary complications. Allergies No Known Allergies Allergy (Verified 03/26/19 01:33) Home Medications: Glipizide [Glipizide Xl] 2.5 mg PO DAILY 03/26/19 Krill/Om-3/Dha/Epa/Phospho/Ast [Krill Oil 500 mg Softgel] 500 mg PO DAILY Linagliptin [Tradjenta] 5 mg PO DAILY 03/26/19 Metformin HCl 1,000 mg PO BID 03/26/19 Montelukast [Singulair*] 10 mg PO DAILY 03/26/19 Multivitamin [Daily Multivitamin] 1 tab PO DAILY 03/26/19 Omeprazole [Prilosec] 40 mg PO DAILY 03/26/19 - Past Medical/Surgical History Has patient received pneumonia vaccine in the past: No Diabetic: Yes -: Diabetes mellitus (niddm) -: Kidney stones -: hernia -: Lithotripsy -: Hernia repair x 2 -: wisdom teeth removed - Family History Father Medical History: Diabetes, Stroke, Cancer, Other (see notes) Notes: dementia, prostate ca Mother Medical History: Heart disease, Lung disease Brother Medical History: Other (see notes) Notes: hx: kidney stones - Social History Smoking Status: Never smoker Alcohol use: Yes CD- Drugs: No Place of Residence: Home Review of Systems 10-point ROS is otherwise unremarkable Physical Examination - Vital Signs Temperature: 97.7 F Blood Pressure: 106/74 Pulse: 62 Respirations: 16 Pulse Ox (%): 98 - Physical Exam General: Alert, In no apparent distress, Oriented x3 HEENT: Atraumatic, PERRLA, Mucous membr. moist/pink, EOMI, Sclerae nonicteric Neck: Supple, 2+ carotid pulse no bruit, No LAD, Without JVD or thyroid abnormality Respiratory: Clear to auscultation bilaterally, Normal air movement Cardiovascular: Regular rate/rhythm, Normal S1 S2 Gastrointestinal: Normal bowel sounds, Soft and benign, Non-distended, Tenderness (Bilateral flank tenderness) Musculoskeletal: No tenderness Integumentary: No rashes Neurological: Normal gait, Normal speech, Normal strength at 5/5 x4 extr, Normal tone, Sensation intact, Cranial nerves 3-12 intact, Normal affect Lymphatics: No axilla or inguinal lymphadenopathy - Studies Laboratory Data (last 24 hrs) 03/25/19 20:15: Creatinine 1.26 03/25/19 20:15: WBC 8.5, Hgb 14.4, Hct 43.9, Plt Count 256 03/25/19 20:15: Sodium 141, Potassium 3.9, BUN 18, Creatinine 1.26, Glucose 129 H, Total Bilirubin 0.4, AST 14 L, ALT 30, Alkaline Phosphatase 73, Lipase 118 Assessment & Plan - Problems (Diagnosis) (1) Obstructive uropathy Current Visit: Yes Status: Acute (2) Diabetes mellitus Onset Date: 06/06/18 Current Visit: No Status: Acute Qualifiers: Diabetes mellitus type: type 2 (3) Hydronephrosis with obstructing calculus Onset Date: 06/06/18 Current Visit: No Status: Acute - Plan Plan: 1. IV hydration 2. Pain control 3. IV antibiotics 4. Urology consultation 5. Stone to pathology 6. Strain urine 7. NPO after midnight 8. Monitor renal function closely 9. GI and DVT prophylaxis Discharge Plan: Home Plan to discharge in: 48 Hours - Advance Directives Does patient have a Living Will: No Does patient have a Durable POA for Healthcare: No - Code Status/Comfort Care Code Status Assessed: Yes Code Status: Full Code Critical Care: No Time Spent Managing PTS Care (In Minutes): 45
[2019-03-26] MEDS ORDERED: CEFAZOLIN SODIUM 1 GM/VIAL ONE (05:37)
[2019-03-26] MEDS ORDERED: CEFAZOLIN/NS 1gm 1 GM/50 ML BAG IVPB SCH (06:00)
[2019-03-26] MEDS ORDERED: NA CHLORIDE 0.9% 50 ML ONE (06:10)
[2019-03-26 06:20] LABS: Absolute Lymphocytes (CBC) 2.1 K/uL (0.7-4.9); Basophils % 0.7 % (0-1.3); Hematocrit 39.8 % (39.6-49.0); Lymphocytes % 24.9 % (15.3-44.8); MPV 9.9 fL (7.6-11.3); Magnesium 1.7 mg/dL (1.8-2.4); Phosphorus 2.8 mg/dL (2.5-4.9); RBC Red Blood Cell Count 4.66 M/uL (4.33-5.43)
[2019-03-26 06:23] LABS: Albumin 2.9 g/dL (3.4-5.0); Bilirubin Total 0.3 mg/dL (0.2-1.0); Potassium 3.7 mmol/L (3.5-5.1); Protein, Total 5.8 g/dL (6.4-8.2)
[2019-03-26] MEDS ORDERED: HYDROMORPHONE HCL 0.5 MG/0.5 ML INJ IV PRN (07:02)
[2019-03-26 07:07] LABS: Protime INR 0.92
[2019-03-26] MEDS ORDERED: MAGNESIUM SULFATE 1 gm IVPB 1 GM/100 ML BAG IV ONE (07:30)
--- NOTE | 2019-03-26 07:57 | RAD REPORT ---
EXAM DESCRIPTION: RAD - Abdomen 1 View (KUB) - 03/26/2019 12:06 am CLINICAL HISTORY: Right flank pain, obstructing right ureteral calculus COMPARISON: CT study March 25 FINDINGS: Nonobstructing right renal calculi identified. The obstructing proximal right ureteral patience culus is not optimally visualized on KUB imaging. There does appear to be a 5 mm sized calcification in proximity to the L3 right transverse process. This is most likely the obstructing calculus. No left-sided calculi confirmed. Overlying bowel content is limiting. A small calcification was seen lateral mid left kidney on the CT study. Pelvic floor is obscured. Bowel gas pattern is nonspecific. No obstruction, free air or pneumatosis. No significant bony findings IMPRESSION: Approximately 5 mm sized obstructing calculus is identified in close proximity to the L3 right transverse process.
[2019-03-26] MEDS ORDERED: KCL 20 MEQ/100 mL IVPB 20 MEQ/100 ML BAG IV SCH (09:00)
--- NOTE | 2019-03-26 11:33 | CON ---
History Of Present Illness: This 48-year-old gentleman history of stones who presented last night to the ER complaining of severe right flank pain. We got a CAT scan showing a 5 mm stone in the right upper ureter by L3 and also an additional 5-4 mm in the right mid to lower pole (medially) and right upper pole. No left-sided kidney stones were seen. He was given all the general information, alternatives, and risks, wishes to proceed with right ESWL possible stent. The patient is planning to go out of town within the next week or so, likely to be taking care of her. Allergies: NO KNOWN DRUG ALLERGIES. Home Medications: Glipizide, Krill oil, Tradjenta, metformin, Singulair, multivitamin, Prilosec. Past Medical History: Kidney stones, diabetes mellitus, non-insulin- dependent diabetes mellitus. Review of Systems: Otherwise negative. Family History: Noncontributory. Social History: Never smoked. No alcohol use. No drug use. Resides at home. Past Surgical History: Hernia repair, lithotripsy, wisdom teeth removal. Physical Examination: General: Afebrile. Stable. No acute distress. HEENT: Atraumatic. Normocephalic. Neck: Supple. Respiratory: Clear. Cardiovascular: S1, S2. Gastrointestinal: Normal bowel sounds. Extremities: Normal range of motion. Laboratory Data: Creatinine 1.26. Rest of the electrolytes normal. CBC reviewed. Assessment: Right upper ureter stone 5 mm for right ESWL. All the general information, alternatives, and risks were reviewed. The patient may possibly need a stent. He wants this to be done in most definitive way by ureteroscopy, will have to dilate and go all the way up to the right upper ureter, which would be a lot harder than it was in the distal ureter so we will try ESWL and if stone does not break, we may place a stent for now. He can always come back later and do ureteroscopy. He knows all the general information, alternatives, risks and wishes to proceed. VIOLET/ANTHONY Voice ID: [id number] Report ID: [id number] REGINE
[2019-03-26] MEDS: CEFAZOLIN/SWI 1gm 1 GM/10 ML SYR IV SCH ×2 (11:41→17:19)
--- NOTE | 2019-03-26 12:37 | P.SSS ---
Patient History Date of Service: 03/26/19 Reason for admission: Nephrolithiasis/obstructive uropathy History of Present Illness: Patient is a 48-year-old gentleman who has a history of nephrolithiasis. He was seen a few months ago with similar complaints. At that time he states he had lithotripsy performed on 3 different occasions. Unfortunately, the stone was not small enough so he needed cystoscopy with stone extraction. Stone was sent to pathology but there is no report that lets me know what kind of stone was identified. I believe he had a stent placed as well at that time. He had recurrence of his symptoms and his workup in the ER confirmed that he had nephrolithiasis. ER physician spoke to Urology and patient is set up for cystoscopy in a.m.. Patient with no significant cardiac risks. Has history of hypertension and diabetes. Denies any cardiovascular disease. Patient is low risk for any cardiopulmonary complications. Allergies No Known Allergies Allergy (Verified 03/26/19 01:33) Home Medications: Glipizide [Glipizide Xl] 2.5 mg PO DAILY 03/26/19 Krill/Om-3/Dha/Epa/Phospho/Ast [Krill Oil 500 mg Softgel] 500 mg PO DAILY Linagliptin [Tradjenta] 5 mg PO DAILY 03/26/19 Metformin HCl 1,000 mg PO BID 03/26/19 Montelukast [Singulair*] 10 mg PO DAILY 03/26/19 Multivitamin [Daily Multivitamin] 1 tab PO DAILY 03/26/19 Omeprazole [Prilosec] 40 mg PO DAILY 03/26/19 - Past Medical/Surgical History Has patient received pneumonia vaccine in the past: No Diabetic: Yes -: Diabetes mellitus (niddm) -: Kidney stones -: hernia -: Lithotripsy -: Hernia repair x 2 -: wisdom teeth removed - Family History Father -: Diabetes, Stroke, Cancer, Other (see notes) Notes: dementia, prostate ca Mother -: Heart disease, Lung disease Brother -: Other (see notes) Notes: hx: kidney stones - Social History Smoking Status: Never smoker Alcohol use: Yes CD- Drugs: No Caffeine use: Yes Place of Residence: Home Review of Systems 10-point ROS is otherwise unremarkable Physical Examination - Vital Signs Temperature: 98.0 F Blood Pressure: 100/60 Pulse: 59 Respirations: 16 Pulse Ox (%): 95 - Physical Exam General: Alert, In no apparent distress HEENT: Atraumatic, PERRLA, Mucous membr. moist/pink, EOMI, Sclerae nonicteric Neck: Supple, 2+ carotid pulse no bruit, No LAD, Without JVD or thyroid abnormality Respiratory: Clear to auscultation bilaterally, Normal air movement Cardiovascular: Regular rate/rhythm, Normal S1 S2 Gastrointestinal: Normal bowel sounds, No tenderness Musculoskeletal: No tenderness Integumentary: No rashes Neurological: Normal gait, Normal speech, Normal strength at 5/5 x4 extr, Normal tone, Normal affect Lymphatics: No axilla or inguinal lymphadenopathy - Studies Laboratory Data (last 24 hrs) 03/25/19 20:15: Creatinine 1.26 03/25/19 20:15: WBC 8.5, Hgb 14.4, Hct 43.9, Plt Count 256 03/25/19 20:15: Sodium 141, Potassium 3.9, BUN 18, Creatinine 1.26, Glucose 129 H, Total Bilirubin 0.4, AST 14 L, ALT 30, Alkaline Phosphatase 73, Lipase 118 - Diagnosis (Problem(s)) (1) Hydronephrosis with obstructing calculus Onset Date: 06/06/18 Current Visit: No Status: Acute (2) Obstructive uropathy Current Visit: Yes Status: Acute (3) Diabetes mellitus Onset Date: 06/06/18 Current Visit: No Status: Chronic Qualifiers: Diabetes mellitus type: type 2 Treatment Summary: Overall during the hospital stay patient remained stable Patient was initially admitted to the hospital for nephrolithiasis with obstructive uropathy. Urology was consulted. Patient had ESWL done with stent placement. Patient had marked improvement in his symptoms and thus was discharged home under stable condition was asked to follow up with urology in about 1-2 days post discharge. Patient demonstrate understanding and thus was discharged home under stable condition - Disposition Disposition: ROUTINE DISCHARGE Condition: GOOD Diet: Regular Activity: Ad zeynep
[2019-03-26] MEDS ORDERED: Ringers Lactate 1,000 ML IV ONE (12:51)
[2019-03-26] MEDS ORDERED: PROPOFOL 200 MG/20 ML VIAL IV ONE (15:45)
[2019-03-26] MEDS ORDERED: LIDOCAINE 2% MPF 5 ML VIAL ONE (15:46)
[2019-03-26] MEDS ORDERED: FENTANYL CITR 100 MCG/2 ML ONE (15:47)
[2019-03-26] MEDS ORDERED: dexAMETHasone 10 MG/ML VIAL ONE (16:15)
[2019-03-26] MEDS ORDERED: ONDANSETRON 4 MG/2 ML VIAL ONE (16:15)
[2019-03-26] MEDS ORDERED: KETOROLAC 30 MG/ML INJ ONE (16:16)
[2019-03-26 16:54] VITALS: TEMP 97.1
[2019-03-26] MEDS ORDERED: ENOXAPARIN 30 MG/0.3 ML SQ SCH (17:00)
[2019-03-26 21:22] VITALS: BP 130/76
[2019-03-26 23:48] VITALS: O2SAT 95
== END 2019-03-26 21:30 | disposition home or self-care (01) ==
LOC: ER 19:37 → ERHOLD 03-26 00:49 → 4TH 03-26 01:11
PROVIDERS: ADMIT Hospitalist; ATTEND Family Medicine
PROC: 0T778DZ Dilation of Left Ureter with Intraluminal Device, Via Natural or Artificial Opening Endoscopic (ICD-10-PCS; 2019-03-26)
PROC: 0TC78ZZ Extirpation of Matter from Left Ureter, Via Natural or Artificial Opening Endoscopic (ICD-10-PCS; principal; 2019-03-26 14:00)
DX: N13.2 Hydronephrosis with renal and ureteral calculous obstruction (principal); E11.9 Type 2 diabetes mellitus without complications; Z79.84 Long term (current) use of oral hypoglycemic drugs
CPT/HCPCS: 36415; 50590; 74018; 74176; 76377; 80048; 80053; 80076; 81003; 82962; 83690; 83735; 84100; 85025; 85610; 85730; 96361; 96374; 96375; 99285; G0378; J0690; J1100; J2405; J2704; J3010; J3475; J7030

== ENCOUNTER 2019-03-28 18:44 | Emergency (ER) | payer BC ==
--- OUTSIDE RECORDS SUMMARY | 2019-03-28 18:46 | XMS REPORT ---
[...] Date Date Cetirizine HCl [facility] 32328212485 10 MG Orally Active 1 tablet Once a day PredniSONE ND 43957706708 20 MG Orally BID Active 1 tablet Metformin HCl ND 46732896819 1000 MG Orally Active 1 tablet Once a day with a meal Montelukast ND 50433429964 10 MG Orally Active 1 tablet Sodium Once a day in the evening Flonase ND 45076972256 50 MCG/ACT Active 1 spray in Nasally Once a each day nostril Omeprazole ND 24969378821 40 MG Orally Active 1 capsule Once a day Tradjenta ND 88215469400 5 MG Orally Once Active 1 tablet a day Results No Known Results Summary Purpose eClinicalWorks Submission
--- OUTSIDE RECORDS SUMMARY | 2019-03-28 18:46 | XMS REPORT ---
[...] End Status Dosage System Date Cetirizine HCl [facility] 49626896708 10 MG Orally Active 1 tablet Once a day Singulair [facility] 82997568169 10 MG Active TAKE ONE BY MOUTH DAILY Omeprazole [facility] 76932088630 40 MG Orally Active 1 capsule Once a day Metformin HCl [facility] 53749317104 1000 MG Orally Active 1 tablet Once a day with a meal Metformin HCl [facility] 64001407737 1000 MG Active TAKE ONE BY MOUTH TWICE DAILY Montelukast ND 73526637741 10 MG Orally Active 1 tablet in Sodium Once a day the evening [employer] Test [facility] 16041028516 - In Vitro May 25, Active as directed twice a day [address] [facility] 47932649844 40 MG Active TAKE ONE BY MOUTH DAILY Tradjenta [facility] 96173612644 5 MG Orally Active 1 tablet Once a day PredniSONE ND 34323610466 20 MG Orally Active [address] [facility] 73493598899 50 MCG/ACT Active 1 spray in Nasally Once a each day nostril Results No Known Results Summary Purpose eClinicalWorks Submission
--- OUTSIDE RECORDS SUMMARY | 2019-03-28 18:46 | XMS REPORT ---
[...] Medications Results No Known Results Summary Purpose [employer] Submission
--- OUTSIDE RECORDS SUMMARY | 2019-03-28 18:46 | XMS REPORT ---
[...] Medications Results No Known Results Summary Purpose [employer] Submission
--- OUTSIDE RECORDS SUMMARY | 2019-03-28 18:47 | XMS REPORT ---
[...] Start End Status Dosage System Date Singulair [facility] 85776065789 10 MG Active TAKE ONE BY MOUTH DAILY Cetirizine HCl [facility] 75477530026 10 MG Orally Active 1 tablet Once a day GlipiZIDE ER [facility] 36031594798 5 MG Orally Sep 21, Active 1 tablet Once a day 2018 Tradjenta [facility] 03925658705 5 MG Orally Active 1 tablet Once a day PredniSONE [facility] 49724179323 20 MG Orally Active 1 tablet BID Flonase [facility] 17277670681 50 MCG/ACT Active 1 spray in Nasally Once a each day nostril Montelukast [facility] 52704015871 10 MG Orally Active 1 tablet in Sodium Once a day the evening [employer] Test [facility] 35419272660 - In Vitro Active as directed twice a day Omeprazole [facility] 00259069909 40 MG Active TAKE ONE BY MOUTH DAILY Metformin HCl [facility] 04568597979 1000 MG Orally Active 1 tablet twice a day with a meal Metformin HCl [facility] 53414250263 1000 MG Active TAKE ONE BY MOUTH TWICE DAILY Omeprazole [facility] 60392882300 40 MG Orally Active 1 capsule Once a day Results No Known Results Summary Purpose eClinicalWorks Submission
--- OUTSIDE RECORDS SUMMARY | 2019-03-28 18:47 | XMS REPORT ---
[...] End Status Dosage System Date Date Omeprazole [facility] 44158886831 40 MG Orally Active 1 capsule Once a day Montelukast [facility] 34838052446 10 MG Orally Active 1 tablet in Sodium Once a day the evening PredniSONE ND 31055688490 20 MG Orally Active 1 tablet BID Metformin HCl ND 88909522378 1000 MG Orally Active 1 tablet Once a day with a meal Omeprazole [facility] 00064257163 40 MG Active TAKE ONE BY MOUTH DAILY Metformin HCl [facility] 09851810796 1000 MG Active TAKE ONE BY MOUTH TWICE DAILY Tradjenta [facility] 08316659999 5 MG Orally Active 1 tablet Once a day Flonase [facility] 80934145941 50 MCG/ACT Active 1 spray in Nasally Once a each day nostril [employer] Test [facility] 86304375269 - In Vitro May 25, Active as directed twice a day 2017 Cetirizine HCl [facility] 50758731741 10 MG Orally Active 1 tablet Once a day Singulair [facility] 45969212270 10 MG Active TAKE ONE BY MOUTH DAILY Results No Known Results Summary Purpose eClinicalWorks Submission
--- OUTSIDE RECORDS SUMMARY | 2019-03-28 18:47 | XMS REPORT ---
[...] End Status Dosage System Date Date Montelukast [facility] 02501957856 10 MG Orally Active 1 tablet in Sodium Once a day the evening Flonase [facility] 76928635075 50 MCG/ACT Active 1 spray in Nasally Once a each day nostril Singulair [facility] 43041625396 10 MG Active TAKE ONE BY MOUTH DAILY Cetirizine HCl ND 65987457138 10 MG Orally Active 1 tablet Once a day Tradjenta [facility] 10315870928 5 MG Orally Active 1 tablet Once a day GlipiZIDE ER ND 55608378040 2.5 MG Orally Active 1 tablet Once a day with largest meal [employer] Test [facility] 22964316133 - In Vitro Active as directed twice a day Omeprazole [facility] 40877901887 40 MG Active TAKE ONE BY MOUTH DAILY Metformin HCl [facility] 95300267614 1000 MG Active TAKE ONE BY MOUTH TWICE DAILY PredniSONE [facility] 74750383073 20 MG Orally Active 1 tablet BID Omeprazole [facility] 77038071002 40 MG Orally Active 1 capsule Once a day Metformin HCl [facility] 08543217945 1000 MG Orally Active 1 tablet twice a day with a meal Results No Known Results Summary Purpose eClinicalWorks Submission
--- OUTSIDE RECORDS SUMMARY | 2019-03-28 18:47 | XMS REPORT ---
[...] Status Dosage System Date Date Metformin HCl [facility] 15124449369 1000 MG Active TAKE ONE BY MOUTH TWICE DAILY Singulair [facility] 13406992276 10 MG Active TAKE ONE BY MOUTH DAILY [employer] Test [facility] 11471124328 - In Vitro May 25, Active as directed twice a day 2017 Flonase [facility] 42306314760 50 MCG/ACT Active 1 spray in Nasally Once a each day nostril Cetirizine HCl [facility] 32010137319 10 MG Orally Active 1 tablet Once a day Omeprazole ND 75326781129 40 MG Orally Active 1 capsule Once a day Metformin HCl [facility] 00233850935 1000 MG Orally Active 1 tablet Once a day with a meal Tradjenta [facility] 48213799272 5 MG Orally Active 1 tablet Once a day Montelukast ND 73205921934 10 MG Orally Active 1 tablet in Sodium Once a day the evening PredniSONE [facility] 53503533866 20 MG Orally Active 1 tablet BID Omeprazole [facility] 41902161471 40 MG Active TAKE ONE BY MOUTH DAILY Results No Known Results Summary Purpose eClinicalWorks Submission
--- OUTSIDE RECORDS SUMMARY | 2019-03-28 18:47 | XMS REPORT ---
[...] Status Dosage System Date Metformin HCl [facility] 30180064990 1000 MG Orally Active 1 tablet twice a day with a meal Results No Known Results Summary Purpose eClinicalWorks Submission
--- OUTSIDE RECORDS SUMMARY | 2019-03-28 18:47 | XMS REPORT ---
[...] Medications Results No Known Results Summary Purpose [employer] Submission
[2019-03-28] MEDS ORDERED: PROMETHAZINE 25 MG/ML VIAL ONE (19:28)
[2019-03-28] MEDS ORDERED: KETOROLAC 30 MG/ML INJ ONE (19:28)
[2019-03-28] MEDS ORDERED: MORPHINE 4 MG/ML SYR ONE (19:28)
[2019-03-28] MEDS ORDERED: NA CHLORIDE 0.9% 1,000 ML ONE ×2 (19:29→21:54)
[2019-03-28 19:35] LABS: Absolute Lymphocytes (CBC) 1.6 K/uL (0.7-4.9); Basophils % 0.3 % (0-1.3); Eosinophils % 0.4 % (0-4.4); Hematocrit 43.6 % (39.6-49.0); Lymphocytes % 10.4 % (15.3-44.8); MPV 9.7 fL (7.6-11.3); Monocytes % 8.2 % (3.3-12.3); RBC Red Blood Cell Count 5.05 M/uL (4.33-5.43)
[2019-03-28 19:41] LABS: Potassium 4.1 mmol/L (3.5-5.1)
--- NOTE | 2019-03-28 20:17 | RAD REPORT ---
EXAM DESCRIPTION: CT - Stone Protocol - 03/28/2019 8:00 pm CLINICAL HISTORY: Abdominal pain. Right flank pain COMPARISON: March 25, 2019 TECHNIQUE: Computed axial tomography of the abdomen pelvis was obtained without oral or IV contrast. Lack of IV and oral contrast limits evaluation of solid organs, bowel, and vessels. Coronal reformat gail images were obtained and reviewed. All CT scans are performed using dose optimization technique as appropriate and may include automated exposure control or mA/KV adjustment according to patient size. FINDINGS: Bilateral renal calculi . Mild to moderate right hydronephrosis. Three calculi are present within the calculus distal right ureter a couple centimeters from the UVJ. The largest measures 4 mi llimeters. The proximal right ureteral calculus is no longer visualized. This may represent fragmenta tion of the calculus. The liver, spleen, pancreas and adrenals appear grossly normal There is no evidence of diverticulitis. IMPRESSION: Distal right ureteral calculi. Mild to moderate right hydronephrosis
[2019-03-28] MEDS ORDERED: CEFTRIAXONE/SWI 1gm 1 GM/10 ML SYR ONE (20:28)
--- NOTE | 2019-03-28 22:05 | ER ---
Nurse's Notes [facility] Name: Fermin Mc Age: 48 yrs Sex: Male : 1970 Arrival Date: 03/28/2019 Time: 18:45 Bed 23 Private MD: Tika Franco A; Vang, Na Diagnosis: Hydronephrosis with renal and ureteral calculous obstruction;Unspecified renal colic Presentation: 03/28 18:49 Presenting complaint: Right flank pain that radiates to RLQ and difficulty urinating x hb 3 days. Pt had lithotripsy on Monday, reports pain is getting worse. Transition of care: patient was not received from another setting of care. Onset of symptoms was March 25, 2019. Risk Assessment: Do you want to hurt yourself or someone else? Patient reports no desire to harm self or others. Initial Sepsis Screen: Does the patient meet any 2 criteria? No. Patient's initial sepsis screen is negative. Does the patient have a suspected source of infection? No. Patient's initial sepsis screen is negative. Care prior to arrival: None. 18:49 Method Of Arrival: Ambulatory hb 18:49 Acuity: VANNESSA 3 hb Historical: - Allergies: 18:51 No Known Allergies; hb - Home Meds: 18:51 Flomax 0.4 mg Oral cp24 1 cap once daily [Active]; Glipizide Oral [Active]; metformin hb 1,000 mg Oral tab 1 tab 2 times per day [Active]; multivitamin Oral tab daily [Active]; omeprazole 40 mg Oral cpDR 1 cap once daily [Active]; Singulair 10 mg Oral tab 1 tab once daily [Active]; trajenta daily [Active]; Bayard Oral [Active]; Tylenol #3 Oral [Active]; - PMHx: 18:51 allergies; Diabetes - NIDDM; GERD; Hernia; Kidney stones; seasonal allergies; hb - PSHx: 18:51 Lithotripsy; Hernia repair; Kidney stents; hb - Immunization history:: Adult Immunizations up to date. - Social history:: Smoking status: Patient/guardian denies using tobacco. - Ebola Screening: : No symptoms or risks identified at this time. Screenin:33 Abuse screen: Denies threats or abuse. Denies injuries from another. Nutritional mg2 screening: No deficits noted. Tuberculosis screening: No symptoms or risk factors identified. Fall Risk IV access (20 points). Assessment: 19:34 General: Appears in no apparent distress. comfortable, Behavior is calm, cooperative. mg2 Pain: Complains of pain in right flank Pain does not radiate. Pain currently is 10 out of 10 on a pain scale. Quality of pain is described as aching, Pain began gradually. Neuro: Level of Consciousness is awake, alert, obeys commands, Oriented to person, place, time, situation. Cardiovascular: Capillary refill < 3 seconds Patient's skin is warm and dry. Respiratory: Airway is patent Respiratory effort is even, unlabored, Respiratory pattern is regular, symmetrical. GI: Bowel sounds present X 4 quads. Abd is soft and non tender. : Reports pain in right flank(s). EENT: No deficits noted. Derm: Skin is intact, is healthy with good turgor, Skin is pink, warm \T\ dry. normal. Musculoskeletal: Circulation, motion, and sensation intact. Capillary refill < 3 seconds. 22:19 Reassessment: patient up for discharge after completing iv fluid. Patient denies pain mg2 at this time. Patient states feeling better. Patient states symptoms have improved. Vital Signs: 18:50 BP 147 / 91; Pulse 70; Resp 16; Temp 97.8; Pulse Ox 100% on R/A; Weight 83.91 kg; hb Height 5 ft. 7 in. (170.18 cm); Pain 10/10; 20:56 BP 121 / 73; Pulse 71; Resp 18; Pulse Ox 100% on R/A; Pain 0/10; mg2 21:57 BP 129 / 87; Pulse 77; Resp 18; Pulse Ox 100% on R/A; mg2 18:50 Body Mass Index 28.97 (83.91 kg, 170.18 cm) hb ED Course: 18:45 Patient arrived in ED. as 18:45 Tika Franco MD is Private Physician. as 18:45 Buffy Pope MD is Private Physician. as 18:50 Triage completed. hb 18:50 Arm band placed on right wrist. hb 19:02 Ness Cordon FNP-C is [facility]. snw 19:02 Josr Millan MD is Attending Physician. snw 19:04 Gardose, Hadley, RN is Primary Nurse. mg2 19:33 No provider procedures requiring assistance completed. Inserted saline lock: 20 gauge mg2 in right antecubital area, using aseptic technique. 19:37 Patient has correct armband on for positive identification. Pulse ox on. NIBP on. Door mg2 closed. 20:01 CT Stone Protocol In Process Unspecified. EDMS 22:04 Tika Franco MD is Referral Physician. snw 22:59 IV discontinued, intact, bleeding controlled, No redness/swelling at site. Pressure mg2 dressing applied. Administered Medications: 19:31 Drug: NS 0.9% 1000 ml Route: IV; Rate: 1 bolus; Site: right antecubital; mg2 23:00 Follow up: Response: No adverse reaction; IV Status: Completed infusion; IV Intake: mg2 1000ml 19:31 Drug: TORadol 30 mg Route: IVP; Site: right antecubital; mg2 20:23 Follow up: Response: No adverse reaction; Marked relief of symptoms mg2 19:31 Drug: Phenergan 6.25 mg Route: IVP; Site: right antecubital; mg2 20:23 Follow up: Response: No adverse reaction; Marked relief of symptoms mg2 19:31 Drug: morphine 4 mg Route: IVP; Site: right antecubital; mg2 20:22 Follow up: Response: No adverse reaction; Marked relief of symptoms mg2 20:27 Drug: Rocephin - (cefTRIAXone) 1 grams Route: IVPB; Infused Over: 30 mins; Site: right mg2 antecubital; 22:59 Follow up: Response: No adverse reaction; IV Status: Completed infusion mg2 21:48 Drug: NS 0.9% 1000 ml Route: IV; Rate: 1 bolus; Site: right antecubital; mg2 22:58 Follow up: Response: No adverse reaction; IV Status: Completed infusion; IV Intake: mg2 1000ml Point of Care Testing: Blood Glucose: 19:15 Blood Glucose: 141 mg/dL; mg2 Ranges: Intake: 22:58 IV: 1000ml; Total: 1000ml. mg2 23:00 IV: 1000ml; Total: 2000ml. mg2 Outcome: 22:05 Discharge ordered by . snw 22:59 Discharged to home ambulatory, with family. mg2 22:59 Condition: stable 22:59 Discharge instructions given to patient, family, Instructed on discharge instructions, follow up and referral plans. medication usage, Demonstrated understanding of instructions, follow-up care, medications, Prescriptions given X 1. 23:00 Patient left the ED. mg2 Signatures: Dispatcher [employer] EDMS Ness Cordon, DAVY-C LICENSED PHYSICAL THERAPIST ASSISTANT-Jamesw Chantelle Li Heather, MANDI RN Hadley Jack RN RN mg2 Corrections: (The following items were deleted from the chart) 19:37 19:34 Pain: Complains of pain in left flank Pain does not radiate. Pain currently is 10 mg2 out of 10 on a pain scale. Quality of pain is described as aching, Pain began gradually, mg2 19:37 19:34 : Reports pain in left flank(s), mg2 mg2
--- NOTE | 2019-03-28 22:06 | EDPHYS ---
Physician Documentation [facility] Name: Fermin Mc Age: 48 yrs Sex: Male : 1970 Arrival Date: 03/28/2019 Time: 18:45 Bed 23 Private MD: Tika Franco A; Vang, Na ED Physician Josr Millan HPI: 03/28 19:10 This 48 yrs old Male presents to ER via Ambulatory with complaints of snw Possible Kidney Stone. Historical: - Allergies: 18:51 No Known Allergies; hb - Home Meds: 18:51 Flomax 0.4 mg Oral cp24 1 cap once daily [Active]; Glipizide Oral [Active]; metformin hb 1,000 mg Oral tab 1 tab 2 times per day [Active]; multivitamin Oral tab daily [Active]; omeprazole 40 mg Oral cpDR 1 cap once daily [Active]; Singulair 10 mg Oral tab 1 tab once daily [Active]; trajenta daily [Active]; Manvel Oral [Active]; Tylenol #3 Oral [Active]; - PMHx: 18:51 allergies; Diabetes - NIDDM; GERD; Hernia; Kidney stones; seasonal allergies; hb - PSHx: 18:51 Lithotripsy; Hernia repair; Kidney stents; hb - Immunization history:: Adult Immunizations up to date. - Social history:: Smoking status: Patient/guardian denies using tobacco. - Ebola Screening: : No symptoms or risks identified at this time. ROS: 19:08 Constitutional: Negative for fever, chills, and weight loss, Eyes: Negative for injury, snw pain, redness, and discharge, ENT: Negative for injury, pain, and discharge, Neck: Negative for injury, pain, and swelling, Cardiovascular: Negative for chest pain, palpitations, and edema, Respiratory: Negative for shortness of breath, cough, wheezing, and pleuritic chest pain. 19:08 MS/Extremity: Negative for injury and deformity, Skin: Negative for injury, rash, and discoloration, Neuro: Negative for headache, weakness, numbness, tingling, and seizure, Psych: Negative for depression, anxiety, suicide ideation, homicidal ideation, and hallucinations. 19:08 Abdomen/GI: Positive for abdominal pain, nausea, vomiting. 19:08 Back: Positive for flank pain, on the right. 19:08 : Positive for urinary symptoms. Exam: 19:08 Constitutional: This is a well developed, well nourished patient who is awake, alert, snw and in no acute distress. Head/Face: Normocephalic, atraumatic. Eyes: Pupils equal round and reactive to light, extra-ocular motions intact. Lids and lashes normal. Conjunctiva and sclera are non-icteric and not injected. Cornea within normal limits. Periorbital areas with no swelling, redness, or edema. ENT: Nares patent. No nasal discharge, no septal abnormalities noted. Tympanic membranes are normal and external auditory canals are clear. Oropharynx with no redness, swelling, or masses, exudates, or evidence of obstruction, uvula midline. Mucous membranes moist. Neck: Trachea midline, no thyromegaly or masses palpated, and no cervical lymphadenopathy. Supple, full range of motion without nuchal rigidity, or vertebral point tenderness. No Meningismus. Chest/axilla: Normal chest wall appearance and motion. Nontender with no deformity. No lesions are appreciated. Cardiovascular: Regular rate and rhythm with a normal S1 and S2. No gallops, murmurs, or rubs. Normal PMI, no JVD. No pulse deficits. Respiratory: Lungs have equal breath sounds bilaterally, clear to auscultation and percussion. No rales, rhonchi or wheezes noted. No increased work of breathing, no retractions or nasal flaring. Abdomen/GI: Soft, non-tender, with normal bowel sounds. No distension or tympany. No guarding or rebound. No evidence of tenderness throughout. 19:08 Skin: Warm, dry with normal turgor. Normal color with no rashes, no lesions, and no evidence of cellulitis. MS/ Extremity: Pulses equal, no cyanosis. Neurovascular intact. Full, normal range of motion. Neuro: Awake and alert, GCS 15, oriented to person, place, time, and situation. Cranial nerves II-XII grossly intact. Motor strength 5/5 in all extremities. Sensory grossly intact. Cerebellar exam normal. Normal gait. Psych: Awake, alert, with orientation to person, place and time. Behavior, mood, and affect are within normal limits. 19:08 Back: CVA tenderness, that is moderate, is noted on the right. Vital Signs: 18:50 BP 147 / 91; Pulse 70; Resp 16; Temp 97.8; Pulse Ox 100% on R/A; Weight 83.91 kg; hb Height 5 ft. 7 in. (170.18 cm); Pain 10/10; 20:56 BP 121 / 73; Pulse 71; Resp 18; Pulse Ox 100% on R/A; Pain 0/10; mg2 21:57 BP 129 / 87; Pulse 77; Resp 18; Pulse Ox 100% on R/A; mg2 18:50 Body Mass Index 28.97 (83.91 kg, 170.18 cm) hb MDM: 19:07 Patient medically screened. braxton 19:10 Data reviewed: vital signs, nurses notes. Data interpreted: Pulse oximetry: on room air snw is 100 %. Interpretation: normal. Counseling: I had a detailed discussion with the patient and/or guardian regarding: the historical points, exam findings, and any diagnostic results supporting the discharge/admit diagnosis, the presence of at least one elevated blood pressure reading (>120/80) during this emergency department visit, lab results, radiology results. 03/28 19:07 Order name: Basic Metabolic Panel; Complete Time: 19:43 snw 03/28 19:07 Order name: CBC with Diff; Complete Time: 19:44 snw 03/28 19:07 Order name: CT Stone Protocol; Complete Time: 20:21 snw 18 19:12 Order name: Glucose, Ancillary Testing; Complete Time: 19:19 EDMS 03/28 19:07 Order name: Labs collected and sent; Complete Time: 19:12 snw 03/28 19:07 Order name: FSBS; Complete Time: 19:11 snw Administered Medications: 19:31 Drug: NS 0.9% 1000 ml Route: IV; Rate: 1 bolus; Site: right antecubital; mg2 23:00 Follow up: Response: No adverse reaction; IV Status: Completed infusion; IV Intake: mg2 1000ml 19:31 Drug: TORadol 30 mg Route: IVP; Site: right antecubital; mg2 20:23 Follow up: Response: No adverse reaction; Marked relief of symptoms mg2 19:31 Drug: Phenergan 6.25 mg Route: IVP; Site: right antecubital; mg2 20:23 Follow up: Response: No adverse reaction; Marked relief of symptoms mg2 19:31 Drug: morphine 4 mg Route: IVP; Site: right antecubital; mg2 20:22 Follow up: Response: No adverse reaction; Marked relief of symptoms mg2 20:27 Drug: Rocephin - (cefTRIAXone) 1 grams Route: IVPB; Infused Over: 30 mins; Site: right mg2 antecubital; 22:59 Follow up: Response: No adverse reaction; IV Status: Completed infusion mg2 21:48 Drug: NS 0.9% 1000 ml Route: IV; Rate: 1 bolus; Site: right antecubital; mg2 22:58 Follow up: Response: No adverse reaction; IV Status: Completed infusion; IV Intake: mg2 1000ml Point of Care Testing: Blood Glucose: 19:15 Blood Glucose: 141 mg/dL; mg2 Ranges: Critical Glucose Levels:Adult <50 mg/dl or >400 mg/dl <40 mg/dl or >180 mg/dl Disposition: 03/29 07:05 Co-signature as Attending Physician, Josr Millan MD I agree with the assessment and braxton plan of care. Disposition: 03/28/19 22:05 Discharged to Home. Impression: Hydronephrosis with renal and ureteral calculous obstruction, Unspecified renal colic. - Condition is Stable. - Discharge Instructions: Kidney Stones, Renal Colic, Hydronephrosis, Dietary Guidelines to Help Prevent Kidney Stones, Rehydration, Adult. - Prescriptions for Cipro 500 mg Oral Tablet - take 1 tablet by ORAL route every 12 hours for 7 days; 14 tablet. - Work release form, Medication Reconciliation Form, Thank You Letter, Antibiotic Education, Prescription Opioid Use form. - Follow up: Tika Franco MD; When: Tomorrow; Reason: Recheck today's complaints, Continuance of care, Re-evaluation by your physician. Follow up: Emergency Department; When: As needed; Reason: Worsening of condition. Signatures: Dispatcher [employer] Josr Flaherty MD MD cha Therrien, Shelly, NON CATEGORICAL PRESCHOOL TEACHER-C NON CATEGORICAL PRESCHOOL TEACHER-Csnw Khushi Gonzalez RN RN Hadley Jack RN RN mg2 Corrections: (The following items were deleted from the chart) 03/28 23:00 22:05 03/28/2019 22:05 Discharged to Home. Impression: Hydronephrosis with renal and mg2 ureteral calculous obstruction; Unspecified renal colic. Condition is Stable. Forms are Medication Reconciliation Form, Thank You Letter, Antibiotic Education, Prescription Opioid Use. Follow up: Tika Franco; When: Tomorrow; Reason: Recheck today's complaints, Continuance of care, Re-evaluation by your physician. Follow up: Emergency Department; When: As needed; Reason: Worsening of condition. snw
[2019-03-29 00:55] VITALS: TEMP 97.8; O2SAT 100
[2019-03-29 00:59] VITALS: BP 129/87
== END 2019-03-28 23:00 | disposition home or self-care (01) ==
LOC: ER 18:44
DX: N13.2 Hydronephrosis with renal and ureteral calculous obstruction (principal); K21.9 Gastro-esophageal reflux disease without esophagitis; Z79.84 Long term (current) use of oral hypoglycemic drugs
CPT/HCPCS: 36415; 74176; 76377; 80048; 82962; 85025; 96361; 96365; 96366; 96375; 99284; J0696; J2550; J7030

== ENCOUNTER 2019-03-29 10:02 | Day surgery (SDC) | payer BC ==
--- OUTSIDE RECORDS SUMMARY | 2019-03-29 10:07 | XMS REPORT ---
[...] Status Dosage System Date Date Metformin HCl [facility] 07444109862 1000 MG Active TAKE ONE BY MOUTH TWICE DAILY Singulair [facility] 32785274561 10 MG Active TAKE ONE BY MOUTH DAILY [employer] Test [facility] 88809376611 - In Vitro May 25, Active as directed twice a day 2017 Flonase [facility] 54941336658 50 MCG/ACT Active 1 spray in Nasally Once a each day nostril Cetirizine HCl [facility] 07996588778 10 MG Orally Active 1 tablet Once a day Omeprazole ND 79541791305 40 MG Orally Active 1 capsule Once a day Metformin HCl [facility] 99925254143 1000 MG Orally Active 1 tablet Once a day with a meal Tradjenta [facility] 84966917579 5 MG Orally Active 1 tablet Once a day Montelukast ND 17195559271 10 MG Orally Active 1 tablet in Sodium Once a day the evening PredniSONE [facility] 33379738145 20 MG Orally Active 1 tablet BID Omeprazole [facility] 32107045445 40 MG Active TAKE ONE BY MOUTH DAILY Results No Known Results Summary Purpose eClinicalWorks Submission
--- OUTSIDE RECORDS SUMMARY | 2019-03-29 10:07 | XMS REPORT ---
[...] Start End Status Dosage System Date Singulair [facility] 68933121330 10 MG Active TAKE ONE BY MOUTH DAILY Cetirizine HCl [facility] 92550810545 10 MG Orally Active 1 tablet Once a day GlipiZIDE ER [facility] 73545991868 5 MG Orally Sep 21, Active 1 tablet Once a day 2018 Tradjenta [facility] 16612726305 5 MG Orally Active 1 tablet Once a day PredniSONE [facility] 58627730909 20 MG Orally Active 1 tablet BID Flonase [facility] 72408531284 50 MCG/ACT Active 1 spray in Nasally Once a each day nostril Montelukast [facility] 54246162970 10 MG Orally Active 1 tablet in Sodium Once a day the evening [employer] Test [facility] 64724550031 - In Vitro Active as directed twice a day Omeprazole [facility] 27407779986 40 MG Active TAKE ONE BY MOUTH DAILY Metformin HCl [facility] 71687098652 1000 MG Orally Active 1 tablet twice a day with a meal Metformin HCl [facility] 32673102142 1000 MG Active TAKE ONE BY MOUTH TWICE DAILY Omeprazole [facility] 93922722981 40 MG Orally Active 1 capsule Once a day Results No Known Results Summary Purpose eClinicalWorks Submission
--- OUTSIDE RECORDS SUMMARY | 2019-03-29 10:07 | XMS REPORT ---
[...] Date Status Dosage System Date Metformin HCl [facility] 60447509720 1000 MG Orally Active 1 tablet twice a day with a meal Results No Known Results Summary Purpose eClinicalWorks Submission
--- OUTSIDE RECORDS SUMMARY | 2019-03-29 10:07 | XMS REPORT ---
[...] End Status Dosage System Date Date Montelukast [facility] 51095959104 10 MG Orally Active 1 tablet in Sodium Once a day the evening Flonase [facility] 13412310071 50 MCG/ACT Active 1 spray in Nasally Once a each day nostril Singulair [facility] 76066975655 10 MG Active TAKE ONE BY MOUTH DAILY Cetirizine HCl ND 89550769641 10 MG Orally Active 1 tablet Once a day Tradjenta [facility] 48897878845 5 MG Orally Active 1 tablet Once a day GlipiZIDE ER ND 17757961273 2.5 MG Orally Active 1 tablet Once a day with largest meal [employer] Test [facility] 52508789725 - In Vitro Active as directed twice a day Omeprazole [facility] 33937386792 40 MG Active TAKE ONE BY MOUTH DAILY Metformin HCl [facility] 15724927414 1000 MG Active TAKE ONE BY MOUTH TWICE DAILY PredniSONE [facility] 43694860763 20 MG Orally Active 1 tablet BID Omeprazole [facility] 78084397504 40 MG Orally Active 1 capsule Once a day Metformin HCl [facility] 09276338755 1000 MG Orally Active 1 tablet twice a day with a meal Results No Known Results Summary Purpose eClinicalWorks Submission
--- OUTSIDE RECORDS SUMMARY | 2019-03-29 10:07 | XMS REPORT ---
[...] Medications Results No Known Results Summary Purpose [employer] Submission
--- OUTSIDE RECORDS SUMMARY | 2019-03-29 10:07 | XMS REPORT ---
[...] Status Dosage System Date Date Cetirizine HCl [facility] 24636673618 10 MG Orally Active 1 tablet Once a day PredniSONE ND 00298762757 20 MG Orally BID Active 1 tablet Metformin HCl ND 59561302830 1000 MG Orally Active 1 tablet Once a day with a meal Montelukast ND 78551313051 10 MG Orally Active 1 tablet Sodium Once a day in the evening Flonase ND 13578323250 50 MCG/ACT Active 1 spray in Nasally Once a each day nostril Omeprazole ND 48223499415 40 MG Orally Active 1 capsule Once a day Tradjenta ND 25992925320 5 MG Orally Once Active 1 tablet a day Results No Known Results Summary Purpose eClinicalWorks Submission
--- OUTSIDE RECORDS SUMMARY | 2019-03-29 10:07 | XMS REPORT ---
[...] End Status Dosage System Date Cetirizine HCl [facility] 72256688545 10 MG Orally Active 1 tablet Once a day Singulair [facility] 01613903253 10 MG Active TAKE ONE BY MOUTH DAILY Omeprazole [facility] 89200888762 40 MG Orally Active 1 capsule Once a day Metformin HCl [facility] 33068816565 1000 MG Orally Active 1 tablet Once a day with a meal Metformin HCl [facility] 15274213698 1000 MG Active TAKE ONE BY MOUTH TWICE DAILY Montelukast ND 84301862102 10 MG Orally Active 1 tablet in Sodium Once a day the evening [employer] Test [facility] 85271440754 - In Vitro May 25, Active as directed twice a day 2017 Omeprazole [facility] 46567184867 40 MG Active TAKE ONE BY MOUTH DAILY Tradjenta [facility] 54206168152 5 MG Orally Active 1 tablet Once a day PredniSONE ND 29745280191 20 MG Orally Active 1 tablet BID Flonase [facility] 13499533614 50 MCG/ACT Active 1 spray in Nasally Once a each day nostril Results No Known Results Summary Purpose eClinicalWorks Submission
--- OUTSIDE RECORDS SUMMARY | 2019-03-29 10:07 | XMS REPORT ---
[...] Medications Results No Known Results Summary Purpose [employer] Submission
--- OUTSIDE RECORDS SUMMARY | 2019-03-29 10:07 | XMS REPORT ---
[...] Medications Results No Known Results Summary Purpose [employer] Submission
--- OUTSIDE RECORDS SUMMARY | 2019-03-29 10:07 | XMS REPORT ---
[...] End Status Dosage System Date Date Omeprazole [facility] 93570074408 40 MG Orally Active 1 capsule Once a day Montelukast [facility] 01831768307 10 MG Orally Active 1 tablet in Sodium Once a day the evening PredniSONE ND 23267195827 20 MG Orally Active 1 tablet BID Metformin HCl ND 49111394082 1000 MG Orally Active 1 tablet Once a day with a meal Omeprazole [facility] 06941044592 40 MG Active TAKE ONE BY MOUTH DAILY Metformin HCl [facility] 40265680514 1000 MG Active TAKE ONE BY MOUTH TWICE DAILY Tradjenta [facility] 48992422638 5 MG Orally Active 1 tablet Once a day Flonase [facility] 72241179365 50 MCG/ACT Active 1 spray in Nasally Once a each day nostril [employer] Test [facility] 55394772247 - In Vitro May 25, Active as directed twice a day 2017 Cetirizine HCl [facility] 10029751441 10 MG Orally Active 1 tablet Once a day Singulair [facility] 64925088153 10 MG Active TAKE ONE BY MOUTH DAILY Results No Known Results Summary Purpose eClinicalWorks Submission
[2019-03-29 11:26] LABS: Phosphorus 3.1 mg/dL (2.5-4.9); Potassium 3.7 mmol/L (3.5-5.1)
[2019-03-29] MEDS ORDERED: NA CHLORIDE 0.9% 1,000 ML ONE (11:32)
[2019-03-29] MEDS ORDERED: GENTAMICIN 80 MG/100 ML BAG 80 MG/100 ML BAG IV ONE (11:32)
[2019-03-29] MEDS ORDERED: METOCLOPRAMIDE 10 MG/2mL INJ ONE (13:11)
[2019-03-29] MEDS ORDERED: NA CIT/CITRIC AC 30 ML ORAL UDC ONE (13:11)
[2019-03-29] MEDS ORDERED: FENTANYL CITR 100 MCG/2 ML ONE (14:09)
[2019-03-29] MEDS ORDERED: MIDAZOLAM HCL 2 MG/2 ML INJ ONE (14:10)
[2019-03-29] MEDS ORDERED: LIDOCAINE 1% MPF 5 ML VIAL ONE (14:10)
[2019-03-29] MEDS ORDERED: ONDANSETRON 4 MG/2 ML VIAL ONE ×2 (14:10→16:44)
[2019-03-29] MEDS ORDERED: PROPOFOL 200 MG/20 ML VIAL IV ONE (14:10)
[2019-03-29] MEDS ORDERED: ROCURONIUM 50 MG/5 ML VIAL IV ONE (14:23)
[2019-03-29] MEDS ORDERED: dexAMETHasone 10 MG/ML VIAL ONE (14:36)
[2019-03-29] MEDS ORDERED: Mastisol Adhesive Liq ONE (14:45)
[2019-03-29] MEDS ORDERED: NEOSTIGMINE 1 MG/ML -10 ML VIAL ONE (14:53)
[2019-03-29] MEDS ORDERED: GLYCOPYRROLATE 0.2 MG/ML SYR ONE ×2 (14:53)
--- NOTE | 2019-03-29 15:05 | RAD REPORT ---
EXAM DESCRIPTION: RAD - Urethrocystogrphy Retrograde - 03/29/2019 2:47 pm CLINICAL HISTORY: ICD N 20.0 FINDINGS: Thirteen fluoroscopic spot images obtained. Fluoroscopy time 18 seconds The right ureter was cannulated and contrast administered. Subsequently a right ureteral stent was pl aced. Examination was performed by
[2019-03-29] MEDS ORDERED: HYDROCODONE/APAP 7.5/325 MG TAB ONE (16:43)
[2019-03-29 18:18] VITALS: BP 129/81; TEMP 98; O2SAT 95
== END 2019-03-29 17:25 | disposition home or self-care (01) ==
LOC: OR 10:02
PROVIDERS: ATTEND Urology
PROC: 0T768DZ Dilation of Right Ureter with Intraluminal Device, Via Natural or Artificial Opening Endoscopic (ICD-10-PCS; 2019-03-29)
PROC: 0TC68ZZ Extirpation of Matter from Right Ureter, Via Natural or Artificial Opening Endoscopic (ICD-10-PCS; principal; 2019-03-29 13:00)
DX: N20.1 Calculus of ureter (principal); E11.9 Type 2 diabetes mellitus without complications; K21.9 Gastro-esophageal reflux disease without esophagitis; Z79.84 Long term (current) use of oral hypoglycemic drugs; Z79.899 Other long term (current) drug therapy
CPT/HCPCS: 36415; 51610; 74450; 80048; 82330; 82360; 82962; 84100; 84550; 88300; J1100; J1580; J2250; J2405; J2704; J2710; J2765; J3010; J7030